=== PATIENT | male | born 2000 | race Two or more races ===

== ENCOUNTER → 2023-05-19 | Emergency (ER) | payer SELFPAY ==
--- NOTE | 2023-05-19 17:51 | ER ---
Nurse's Notes [facility] Name: Joselito Ross Age: 23 yrs Sex: Male : 2000 Arrival Date: 05/19/2023 Time: 14:45 Bed External Waiting Private MD: Diagnosis: Presentation: 05/18 14:51 Chief complaint: EMS states: toned out for seizure, pt was found to be unresponsive on iw scene, pt arrived to ER and jumped off stretcher, refused to be seen by ER staff, walked out of the dept, family was noted to be in lobby, Code [place] was called due to pt having IV in place.[place] [employer] called. Security was able to remove IV prior to pt leaving, pt was seen getting into family's truck. truck noted to be leaving. ED Course: 14:47 Patient arrived in ED. mr 14:53 Kalyan Boston MD is Attending Physician. sana Administered Medications: No medications were administered Outcome: 14:51 Patient left the ED. iw 14:51 Eloped before seeing physician from EMS stretcher iw Signatures: Kalyan Boston MD MD cha Rivera, Mary, Reg Reg Sharon Iglesias RN RN iw Corrections: (The following items were deleted from the chart) 17:51 17:51 Patient left the ED. iw iw
== END ==
LOC: ER 14:45
DX: Z02.9 Encounter for administrative examinations, unspecified (principal)

== ENCOUNTER 2023-08-29 09:47 | Emergency (ER) | payer SELFPAY ==
--- OUTSIDE RECORDS SUMMARY | 2023-08-29 09:49 | XMS REPORT | Continuity of Care Document ---
Author Name Unknown Address [address] [facility] [place] [address] [facility] thconnect Address [address] [facility] [address] [place] [address] Care Team Providers Care Physics Technician Name Role Phone PCP, PATIENT DOES NOT HAVE A Primary Care Physic beatriz Unavailable CHRISTI OLSEN Attending Clinician Unavailable Christi Levin Attending Clinician [phone] Allergies, Adverse Reactions, Alerts Allergy Name Allergy Type Status Severity Reaction(s) Onset Date Inactive Date Treating Clinician Comments Source [facility] Active High Swelling 05-18 00:00: 00 [facility] Allergy Active Swelling 05-18 00:00: 00 [facility] NO KNOWN ALLERGIE S Drug Class Active [facility] Social History Social Habit Start Date Stop Date Quantity Comments Source [facility] 2000 00:00:00 [facility] Smoking Status Start Date Stop Date Source Tobacco smoking consumption unknown [facility] Vital Signs Vital Name Observation Time Observation Value Comments S jumana Systolic blood pressure 2023-05-19 16:02:00 136 mm[Hg[facility] Diastolic blood pressure 2023-05-19 16:02:00 86 mm[Hg] [place] [facility] Heart rate 2023-05-19 16:01:00 74 /min [facility] Body temperature 2023-05-19 16:01:00 36.39 Rosalba [facility] Respiratory rate 2023-05-19 16:01:00 18 /min [facility] Body height 2023-05-19 16:01:00 172.7 cm [facility] Body weight 2023-05-19 16:01:00 74.844 kg [facility] BMI 2023-05-19 16:01:00 25.09 kg/m2 [facility] Oxygen saturation in Arterial blood by Pulse oximetry 2023-05-19 16:01:00 100 /min [place] [facility] Procedures Procedure Date / Time Performed Performing Clinicia n Source EKG-12 LEAD 2023-05-19 16:24:14 Christi Olsen [facility] Encounters Start Date/Time End Date/Time Encounter Type Admission Type Attending Clinicians Care Facility Care Department Encounter ID Source 2023-05-19 11:15:00 2023-05-19 11:24:00 Emergency X CHRISTI OLSEN [facility] ERT [id number] [facility] 2023-05-19 11:15:00 2023-05-19 11:24:00 Emergency Christi Olsen [facility] [id number] [facility] Notes Date/Time Note Provider Source 2023-05-19 11:15:00 [id number]:15:00F ormatting of this note might be different from the original.Patient refused phlebotomy and further work-up though risks and consequences explained by the ED provider, still opted to sign AMA form. CN informed. [id number] department AtkkFD4470-47-02Y16:18:51Emergency department NoteTXT1.2.840.101884.1.13.104.2.7. [id number]|[id number] for patient ofeh71798-1BzovIZNKZWABOZYSgrebpzri C-CDA narrative [id number] [id number] 1VYYILJXXUVPNYSDWVADAIX4914-26-36G1 1:18:511.2.840.598383.1.72.3.15|1.2 .840.299787.1.13.104.2.7.2.727879_2 [id number] Carol Zaragoza RN [facility] 2023-05-19 11:15:00 [id number]:15:00F ormatting of this note might be different from the original.Patient left AMA vitally stable and ambulatory in steady gait accompanied by significant other. [id number] department AonuXT0883-37-97N00:24:18[facility] NoteTXT1.2.840.897163.1.13.104.2.7. 2.785941|[id number] for patient teiv95830-2ClgkGCBKIVMZZQFVermmywlm C-CDA narrative textUT25 Boyd [id number] 7UVXJTBLMLMZLWRSAHJHKNC9974-28-94P3 1:24:181.2.840.288929.1.72.3.15|1.2 .840.626698.1.13.104.2.7.2.727879_2 [id number] [facility] 2023-05-19 10:59:53 [id number]:59:53F ormatting of this note might be different from the original.Patient states "I was at work and was going to get something from locker and I woke up to my employees in front of me, and they said I went face first and hit my head. I woke up five minutes later." 35949-6Qnywuyxxr department Triage qslwUJ3230-65-47C98:00:58[facility] Triage noteTXT1.2.840.909077.1.13.104.2.7. 2.366715|[id number] for patient tkck09400-5Ppthzcyzc department NoteLNNARRATIVEFormatted C-CDA narrative textUT[address] Xu[id number] 1IUJHP[id number] 1:00:581.2.840.043621.1.72.3.15|1.2 .840.185475.1.13.104.2.7.2.727879_2 [id number] [facility]
[2023-08-29] MEDS ORDERED: IBUPROFEN 200 MG TAB PO ONE (10:02)
[2023-08-29] MEDS ORDERED: HYDROCODONE/APAP 7.5/325 MG TAB ONE (10:02)
[2023-08-29] MEDS ORDERED: IBUPROFEN 400 MG TAB ONE (10:03)
--- NOTE | 2023-08-29 10:53 | RAD REPORT ---
EXAM DESCRIPTION: RAD - Clavicle Left - 08/29/2023 10:47 am CLINICAL HISTORY: Shoulder pain FINDINGS: No fracture or dislocation seen
--- NOTE | 2023-08-29 10:56 | RAD REPORT ---
EXAM DESCRIPTION: RAD - Humerus Left - 08/29/2023 10:47 am CLINICAL HISTORY: Left arm pain status post fall FINDINGS: Limited evaluation of portions of mid to distal left humerus. No fracture visualized
--- NOTE | 2023-08-29 10:58 | RAD REPORT ---
EXAM DESCRIPTION: RAD - Forearm Left - 08/29/2023 10:47 am CLINICAL HISTORY: Left forearm pain status post injury FINDINGS: 2 millimeter bony density lies anterior to coronoid process of the ulna. This may be chr onic or an acute fracture and should be correlated clinically
[2023-08-29] MEDS ORDERED: FENTANYL CITR 100 MCG/2 ML ONE (12:14)
--- NOTE | 2023-08-29 12:15 | EDPHYS ---
Physician Documentation [facility] Name: Joselito Ross Age: 23 yrs Sex: Male : 2000 Arrival Date: 08/29/2023 Time: 09:47 Bed 11 Private MD: ED Physician Rasheed Farias HPI: 08/28 09:58 This 23 yrs old Male presents to ER via Unassigned with complaints of Arm Injury. kb 09:58 Pt is a 23 year old male who presents for left arm pain that started at 0500 when he kb tripped going up the stairs and landed on left arm. Denies any other injuries or pain. Reports pain from wrist to shoulder. . Historical: - Allergies: 09:59 No Known Allergies; ph - Home Meds: 12:37 None [Active]; tl4 - PMHx: 09:59 Seizure; Asthma; ph - PSHx: 09:59 None; ph - Immunization history:: Adult Immunizations unknown. - Infectious Disease History:: Denies. - Social history:: Smoking status: Patient reports the use of cigarette tobacco products, Reported history of juuling and/or vaping. ROS: 13:03 Constitutional: As per HPI kb Exam: 13:03 Constitutional: This is a well developed, well nourished patient who is awake, alert, kb and in no acute distress. Head/Face: Normocephalic, atraumatic. ENT: Moist Mucous membranes Cardiovascular: Regular rate Respiratory: Respirations even and unlabored. No increased work of breathing. Talking in full sentences Skin: Warm, dry with normal turgor. Normal color. Neuro: Awake and alert, GCS 15, oriented to person, place, time, and situation. Moves all extremities. Normal gait. 13:03 Musculoskeletal/extremity: Extremities: grossly normal except: noted in the left arm: decreased ROM, pain, swelling, tenderness, ROM: limited active range of motion due to pain, in the left arm, Circulation is intact in all extremities. Sensation intact. Vital Signs: 09:58 Weight 68.04 kg; Height 5 ft. 8 in. ; ph 10:08 BP 141 / 83; Pulse 85; Resp 18; Temp 97.7; Pulse Ox 99% on R/A; ph 13:57 BP 122 / 70; Pulse 70; Resp 16; Temp 98.1(O); Pulse Ox 99% on R/A; tl4 09:58 Body Mass Index 22.81 (68.04 kg, 172.72 cm) ph MDM: 09:56 Patient medically screened. kb 13:03 Differential diagnosis: dislocation, closed fracture, contusion, sprain. Data reviewed: kb vital signs, nurses notes. Counseling: I had a detailed discussion with the patient and/or guardian regarding the historical points, exam findings, and any diagnostic results supporting the discharge/admit diagnosis, radiology results, the need for outpatient follow up, a orthopedic surgeon, to return to the emergency department if symptoms worsen or persist or if there are any questions or concerns that arise at home. 08/28 09:57 Order name: Clavicle Left XRAY; Complete Time: 10:57 kb 08/28 09:57 Order name: Humerus Left XRAY; Complete Time: 10:57 kb 08/28 09:57 Order name: Forearm Left XRAY; Complete Time: 11:02 kb 08/28 09:57 Order name: Ice pack; Complete Time: 12:16 kb 08/28 11:33 Order name: Posterior Elbow Splint; Complete Time: 13:56 kb 08/28 11:33 Order name: Sling; Complete Time: 12:23 kb Administered Medications: 10:08 Drug: Hydrocodone-Acetaminophen PO (7.5 mg-325 mg) 1 tabs PO once Route: PO; ph 12:16 Follow up: Response: No adverse reaction; Pain is decreased tl4 10:08 Drug: Ibuprofen PO 600 mg PO once Route: PO; ph 12:16 Follow up: Response: No adverse reaction; Pain is decreased tl4 12:34 Drug: fentaNYL (PF) IM 25 mcg IM once Route: IM; Site: left deltoid; tl4 13:29 Follow up: Response: No adverse reaction; Pain is decreased tl4 Disposition Summary: 08/29/23 12:14 Discharge Ordered Notes: Location: Home kb Condition: Stable kb Diagnosis - Fracture left elbow kb - Pain in left arm kb Followup: kb - With: Emergency Department - When: As needed - Reason: Worsening of condition Followup: kb - With: Private Physician - When: 2 - 3 days - Reason: Recheck today's complaints, Continuance of care, Re-evaluation by your physician Discharge Instructions: - Discharge Summary Sheet kb - Musculoskeletal Pain kb - Ulnar Fracture kb Forms: - Medication Reconciliation Form kb - Antibiotic Education kb - Prescription Opioid Use kb - Patient Portal Instructions kb - Leadership Thank You Letter kb Prescriptions: - Diclofenac Sodium 75 mg Oral tablet, delayed release (enteric coated) - take 1 tablet ORAL route 2 times per day As needed; 30 tablet; Refills: 0, kb Product Selection Permitted Signatures: Dispatcher [employer] EDArleth Jacobs FNP-C FNP-Heide Freedman RN RN Raulito Brown RN RN tl4 Corrections: (The following items were deleted from the chart) 12:38 12:37 PMHx: "fluid on brain"; tl4 tl4
--- NOTE | 2023-08-29 12:15 | ER ---
Nurse's Notes [facility] Name: Joselito Ross Age: 23 yrs Sex: Male : 2000 Arrival Date: 08/29/2023 Time: 09:47 Bed 11 Private MD: Diagnosis: Fracture left elbow;Pain in left arm Presentation: 08/28 09:58 Chief complaint: Patient states: Tripped going up steps this morning, landed on L arm. ph Coronavirus screen: Vaccine status: Patient reports being unvaccinated. Ebola Screen: No symptoms or risks identified at this time. Initial Sepsis Screen: Does the patient meet any 2 criteria? No. Patient's initial sepsis screen is negative. Does the patient have a suspected source of infection? No. Patient's initial sepsis screen is negative. Risk Assessment: Do you want to hurt yourself or someone else? Patient reports no desire to harm self or others. Onset of symptoms was August 29, 2023. 09:58 Method Of Arrival: Wheelchair 09:58 Acuity: JESSIE 4 ph Triage Assessment: 12:38 General: Appears uncomfortable. Injury Description: blunt, fall onto left upper tl4 extremity. Historical: - Allergies: 09:59 No Known Allergies; ph - Home Meds: 12:37 None [Active]; tl4 - PMHx: 09:59 Seizure; Asthma; ph - PSHx: 09:59 None; ph - Immunization history:: Adult Immunizations unknown. - Infectious Disease History:: Denies. - Social history:: Smoking status: Patient reports the use of cigarette tobacco products, Reported history of juuling and/or vaping. Screenin:35 [facility] ED Fall Risk Assessment (Adult) History of falling in the last 3 months, tl4 including since admission Yes- single mechanical fall (1 pt) Confusion or Disorientation No (0 pts) Intoxicated or Sedated No (0 pts) Impaired Gait No (0 pts) Mobility Assist Device Used No (0 pt) Altered Elimination No (0 pt) Score/Fall Risk Level 0 - 2 = Low Risk Oriented to surroundings, Maintained a safe environment, Educated pt \\T\\ family on fall prevention, incl call for assistance when getting out of bed, Assessed \\T\\ reinforced patient's understanding of fall precautions. Abuse screen: Denies threats or abuse. Denies injuries from another. Nutritional screening: No deficits noted. Tuberculosis screening: No symptoms or risk factors identified. Assessment: 12:08 General: Appears uncomfortable, Behavior is calm, cooperative. Pain: Complains of pain tl4 in left arm. Neuro: Level of Consciousness is awake, alert, obeys commands, Oriented to person, place, time, situation, Moves all extremities. Full function Gait is steady, Speech is normal. Cardiovascular: Capillary refill < 3 seconds Patient's skin is warm and dry. Respiratory: Airway is patent Respiratory effort is even, unlabored, Respiratory pattern is regular, symmetrical, Breath sounds are clear bilaterally. GI: No signs and/or symptoms were reported involving the gastrointestinal system. : No signs and/or symptoms were reported regarding the genitourinary system. EENT: No signs and/or symptoms were reported regarding the EENT system. Derm: No signs and/or symptoms reported regarding the dermatologic system. Musculoskeletal: Circulation, motion, and sensation intact. Swelling present in left arm. 13:56 Reassessment: Patient and/or family updated on plan of care and expected duration. Pain tl4 level reassessed. Patient is alert, oriented x 3, equal unlabored respirations, skin warm/dry/pink. Delay to discharge due to splinting process Patient states feeling better. Vital Signs: 09:58 Weight 68.04 kg; Height 5 ft. 8 in. ; ph 10:08 BP 141 / 83; Pulse 85; Resp 18; Temp 97.7; Pulse Ox 99% on R/A; ph 13:57 BP 122 / 70; Pulse 70; Resp 16; Temp 98.1(O); Pulse Ox 99% on R/A; tl4 09:58 Body Mass Index 22.81 (68.04 kg, 172.72 cm) ph ED Course: 09:49 Patient arrived in ED. im 09:50 Rasheed Farias MD is Attending Physician. ec2 09:56 Arleth Neil [facility]NP-C [facility]. kb 09:59 Triage completed. ph 09:59 Arm band placed on Patient placed in waiting room, Patient notified of wait time. ph 10:49 Clavicle Left XRAY In Process Unspecified. EDMS 10:49 Humerus Left XRAY In Process Unspecified. EDMS 10:49 Forearm Left XRAY In Process Unspecified. EDMS 12:04 Raulito Brown, RN is Primary Nurse. tl4 12:37 Patient has correct armband on for positive identification. Bed in low position. Call tl4 light in reach. Side rails up X 1. Adult w/ patient. Provided Education on: ed process, call bar. Client placed on continuous cardiac and pulse oximetry monitoring. NIBP monitoring applied. Door closed. Noise minimized. Lights dimmed. Moved to private room. Warm blanket given. Pillow given. 12:37 No provider procedures requiring assistance completed. Patient did not have IV access tl4 during this emergency room visit. 13:57 Orthoglass splint: posterior elbow splint applied to left arm by STEWART Ferrara, assisted tl4 by Irais Brown RN Sling applied to left arm. Administered Medications: 10:08 Drug: Hydrocodone-Acetaminophen PO (7.5 mg-325 mg) 1 tabs PO once Route: PO; ph 12:16 Follow up: Response: No adverse reaction; Pain is decreased tl4 10:08 Drug: Ibuprofen PO 600 mg PO once Route: PO; ph 12:16 Follow up: Response: No adverse reaction; Pain is decreased tl4 12:34 Drug: fentaNYL (PF) IM 25 mcg IM once Route: IM; Site: left deltoid; tl4 13:29 Follow up: Response: No adverse reaction; Pain is decreased tl4 Medication: 12:35 VIS not applicable for this client. tl4 Outcome: 12:14 Discharge ordered by . kb 13:59 Discharged to home ambulatory, with family, tl4 13:59 Condition: stable 13:59 Discharge instructions given to patient, Instructed on discharge instructions, follow up and referral plans. medication usage, splint care Demonstrated understanding of instructions, follow-up care, medications, splint care, Prescriptions given X 1, 13:59 Patient left the ED. tl4 Signatures: Dispatcher [employer] EDND Arleth Neil FNP-C FNP-Heide Freedman, RN RN Sarahy Padron Edwin, MD MD ec2 Raulito Brown, [place] RN tl4 Corrections: (The following items were deleted from the chart) 12:38 12:37 PMHx: "fluid on brain"; tl4 tl4
[2023-08-29 14:16] VITALS: BP 122/70; TEMP 98.1; O2SAT 99
== END 2023-08-29 13:59 | disposition home or self-care (01) ==
LOC: ER 09:47
PROC: 2W3BX1Z Immobilization of Left Upper Arm using Splint (ICD-10-PCS; principal; 2023-08-29)
DX: S42.402A Unspecified fracture of lower end of left humerus, initial encounter for closed fracture (principal)
CPT/HCPCS: 96372; 99284; J3010

== ENCOUNTER 2023-10-03 23:31 | Emergency (ER) | payer SELFPAY ==
--- OUTSIDE RECORDS SUMMARY | 2023-10-03 23:34 | XMS REPORT | Continuity of Care Document ---
Author Name Unknown Address [address] [facility] [place] [address] [facility] thconnect Address [address] [facility] [address] [place] [address] Care Team Providers Care Software Systems Architect Name Role Phone Pcp, Patient Does Not Have A Primary Care Physic beatriz Romario De Los Santos MD Attending Clinician [phone] Joaquín Orellana DO Attending Clinician DARIO OLSEN Attending Clinician Unavailable Dario Levin Attending Clinician [phone] Allergies, Adverse Reactions, Alerts Allergy Name Allergy Type Status Severity Reaction(s) Onset Date Inactive Date Treating Clinician Comments Source [facility] Active High Swelling 2023- 3- 00:00: 00 [facility] Avocado Drug Allergy Active Swelling - 00:00: 00 [facility] NO KNOWN ALLERGIE S Drug Class Active [facility] Social History Social Habit Start Date Stop Date Quantity Comments Source Sexual orientation [facility] Sex assigned at 2000 00:00:00 2000 00:00:00 [facility] Smoking Status Start Date Stop Date Source Tobacco smoking consumption unknown [facility] Medications Ordered Medication Name Filled Medication Name Start Date Stop Date Current Medication? Ordering Clinician Indication Dosage Frequency Signature (SIG) Comments Components Source morphine (2 mg/mL) injection 4 mg 09-11 02:30: 00 09-11 02:18 :00 No 4mg 4 mg, Slow IV Push, ONCE, 1 dose, On 09/11/23 at 2130, [facility] NaCl 0.9% (NS) bolus infusion 1,000 mL 09-11 00:30: 00 09-11 01:42 :00 No 1000mL at 999 mL/hr, 1,000 mL, IV Infusion, ONCE, 1 dose, On 09/11/23 at 1930, [facility] HYDROcodone -acetaminop hen (NORCO 5) 5-325 mg tablet 1 tablet 09-11 00:00: 00 09-11 00:33 :00 No 1{tbl} 1 tablet, Oral, ONCE, 1 dose, On 09/11/23 at 1900, [facility] LORazepam (ATIVAN) injection 1 mg 09-10 22:00: 00 09-10 22:00 :00 No 1mg 1 mg, Slow IV Push, ONCE, 1 dose, On 09/11/23 at 1700, [facility] levETIRAcet am (KEPPRA) in NACL (ISO-OS) 500 mg/100 mL RTU 09-10 22:00: 00 09-10 22:10 :00 No 500mg 500 mg, IV Piggyback, ONCE, 1 dose, On 09/11/23 at 1700, Administer over 15 Minutes, 100 mL [facility] NaCl 0.9% (NS) IV infusion 1,000 mL 09-10 22:00: 00 09-10 22:30 :00 No 1000mL at 1,000 mL/hr, IV Infusion, ONCE, 1 dose, On 09/11/23 at 1700, [facility] levETIRAcet am (KEPPRA) in NACL (ISO-OS) 1,500 mg/100 mL RTU 09-10 21:30: 00 09-10 21:47 :00 No 1500mg 1,500 mg, IV Piggyback, ONCE, 1 dose, On 09/11/23 at 1630, Administer over 15 Minutes, 100 mL [facility] ondansetron (ZOFRAN (PF)) injection 4 mg 09-10 21:15: 00 09-10 21:15 :00 No 4mg 4 mg, Slow IV Push, ONCE, 1 dose, On 09/11/23 at 1615, GISELLE [facility] morphine (2 mg/mL) injection 4 mg 09-10 21:15: 00 09-10 21:15 :00 No 4mg 4 mg, Slow IV Push, ONCE, 1 dose, On 09/11/23 at 1615, STAT [facility] levETIRAcet am (KEPPRA) 750 mg tablet 09-10 00:00: 00 10-11 04:59 :00 Yes [id number] 750mg Take 1 tablet by mouth in the morning and 1 tablet in the evening. Do all this for 30 days. [facility] HYDROcodone -acetaminop hen 5-325 mg tablet 09-10 00:00: 00 09-18 04:59 :00 Yes [id number] 1{tbl} Take 1 tablet by mouth every 4 (four) hours as needed for Pain (scale 7-10) for up to 7 days. Indication s: acute pain [facility] Immunizations Ordered Immunization Name Filled Immunization Name Date Status Comments Source TD Pres-Free Unknown Completed [facility] Vital Signs Vital Name Observation Time Observation Value Comments S ource Systolic blood pressure 2023-09-12 01:07:00 137 mm[Hg] [facility] Diastolic blood pressure 2023-09-12 01:07:00 90 mm[Hg] [facility] Heart rate 2023-09-12 01:07:00 64 /min [facility] Respiratory rate 2023-09-12 01:07:00 18 /min [facility] Oxygen saturation in Arterial blood by Pulse oximetry 2023-09-12 01:07:00 100 /min [facility] Body temperature 2023-09-11 23:54:20 37.06 Rosalba [facility] Body height 2023-09-11 20:46:00 167.6 cm [facility] Body weight 2023-09-11 20:46:00 74.844 kg [facility] BMI 2023-09-11 20:46:00 26.63 kg/m2 [facility] Systolic blood pressure 2023-05-19 16:02:00 136 mm[Hg] [facility] Diastolic blood pressure 2023-05-19 16:02:00 86 mm[Hg] [facility] Heart rate 2023-05-19 16:01:00 74 /min [facility] Body temperature 2023-05-19 16:01:00 36.39 Rosalba [facility] Respiratory rate 2023-05-19 16:01:00 18 /min [facility] Body height 2023-05-19 16:01:00 172.7 cm [facility] Body weight 2023-05-19 16:01:00 74.844 kg [facility] BMI 2023-05-19 16:01:00 25.09 kg/m2 [facility] Oxygen saturation in Arterial blood by Pulse oximetry 2023-05-19 16:01:00 100 /min [facility] Procedures Procedure Date / Time Performed Performing Clinician Source EKG-12 LEAD 2023-09-11 23:31:22 Romario De Los Santos [facility] XR ELBOW <3 VW BILATERAL 2023-09-11 23:02:00 Diego Whitlock [facility] XR FOREARM 2 VW LEFT 2023-09-11 23:02:00 Zach Whitlock [facility] XR HUMERUS 2 VW LEFT 2023-09-11 23:02:00 Zach Whitlock [facility] EKG-12 LEAD 2023-09-11 22:31:17 Diego Whitlock [facility] URINALYSIS 2023-09-11 22:30:00 Diego Whitlock [facility] LACTIC ACID WHOLE BLOOD 2023-09-11 22:02:00 Her carmel Whitlock [facility] TROPONIN I 2023-09-11 22:01:00 Diego Whitlock [facility] COMP. METABOLIC PANEL (41146) 2023-09-11 22:01:00 Diego Whitlock [facility] CBC WITH DIFF 2023-09-11 22:01:00 [facility] 2023-09-11 22:01:00 [facility] KEPPRA (LEVETIRACETAM) 2023-09-11 22:01[facility] 2023-09-11 21:49:00 Romario De Los Santos [facility] EKG-12 LEAD 2023-05-19 16:24:14 Dario Olsen [facility] Encounters Start Date/Time End Date/Time Encounter Type Admission Type Attending Clinicians Care Facility Care Department Encounter ID Source 2023-09-11 15:48:00 2023-09-11 21:52:00 Emergency [facility] [id number] [facility] 2023-05-19 11:15:00 2023-05-19 11:24:00 Emergency X DARIO OLSEN [facility] ERT [id number] [facility] 2023-05-19 11:15:00 2023-05-19 11:24:00 Emergency Dario Olsen [facility] [id number] [facility] Results Test Description Test Time Test Comments Results Result Comments Source XR FOREARM 2 VW LEFT 2023-08-24 1 01:11:08 EXAM: XR HUMERUS 2 VW LEFT, XR ELBOW <3 VW BILATERAL, XR FOREARM 2 VW LEFT HISTORY: 23 years-old Male with trauma COMPARISON: None FINDINGS: Radiographs of the bilateral elbows, left humerus and left forearmdemonstrate possible subcentimeter mineralization anterior to the leftradial head, only seen on lateral view of the left forearm. Joint spacesare preserved. Alignment is within normal limits. Moderate sized left elbowjoint effusion. Dorsal left forearm soft tissue swelling. [facility] XR HUMERUS 2 VW LEFT 2023-08-24 1 01:11:08 EXAM: XR HUMERUS 2 VW LEFT, XR ELBOW <3 VW BILATERAL, XR FOREARM 2 VW LEFT HISTORY: 23 years-old Male with trauma COMPARISON: None FINDINGS: Radiographs of the bilateral elbows, left humerus and left forearmdemonstrate possible subcentimeter mineralization anterior to the leftradial head, only seen on lateral view of the left forearm. Joint spacesare preserved. Alignment is within normal limits. Moderate sized left elbowjoint effusion. Dorsal left forearm soft tissue swelling. [facility] XR ELBOW <3 VW BILATERAL 2023-08-24 1 01:11:08 EXAM: XR HUMERUS 2 VW LEFT, XR ELBOW <3 VW BILATERAL, XR FOREARM 2 VW LEFT HISTORY: 23 years-old Male with trauma COMPARISON: None FINDINGS: Radiographs of the bilateral elbows, left humerus and left forearmdemonstrate possible subcentimeter mineralization anterior to the leftradial head, only seen on lateral view of the left forearm. Joint spacesare preserved. Alignment is within normal limits. Moderate sized left elbowjoint effusion. Dorsal left forearm soft tissue swelling. [facility]11 22:00:07* Test Item Value Reference Range Interpretation Comme nts POCT GLU (test code = [id number]) 107 mg/dL 70-110 Lab Interpretation (test cod e = [id number]) Normal [facility] Notes Date/Time Note Provider Source 2023-09-11 21:52:00 Pt leaves AMA, provided prescriptions by MD Damon Darrin Torres RN [facility] 2023-09-11 20:42:32 Pt wishing to leave AMA per MD Damon she must splint pt arm first, pt verbalizes understanding T [facility] 2023-09-11 20:01:45 Neuro at bedside T [facility] 2023-09-11 19:13:12 Introduced self to pt, pt in stretcher side rails upx2 bed in lowest position, seizure safety equipment at bedside. [facility] 2023-09-11 19:08:11 Spoke with EMS and confirmed that they did not find his phone on the truck. [facility] 2023-09-11 18:31:22 Associated Order(s): EKG-12 Lead ROUTINE ONCE Pre-Procedure Diagnose(s): Seizure Post-Procedure Diagnose(s): Seizure EKG-12 Lead ROUTINE ONCE Date/Time: 09/11/2023 6:30 PM Performed by: Romario De Los Santos MD Authorized by: Romario De Los Santos MD ECG interpreted by ED Physician in the absence of a php mysql developer: yes Previous ECG: Previous ECG: Compared to current Similarity: No change Comparison ECG info: 05/15/23 Interpretation: Interpretation: normal Rate: ECG rate: 68 ECG rate assessment: normal Rhythm: Rhythm: sinus rhythm Ectopy: Ectopy: none QRS: QRS axis: Normal QRS intervals: Normal QRS conduction: normal ST segments: ST segments: Normal T waves: T waves: normal Q waves: Abnormal Q-waves: not present [facility] 2023-09-11 16:00:00 Radha Ross is a 23 year old male that arrived to [facility] ER via EMS from From [facility] with complaints of gran mal seizure with resulting fall/injuries. Patient arrives postictal and slightly confused. He is reporting 10/10 pain in both elbows and his head where he has a small lac. is at is at the bedside and witnessed the seizure. Patient has been placed on all monitors and is slightly hypertensive. [facility] 2023-09-11 15:45:20 Radha Ross is a 23 year old male brought in by EMS from [facility] with complaint of witnessed seizure. Fall from standing during seizure, laceration to posterior head, no active bleeding. Patient is alert and oriented x 4, respirations even and unlabored, skin color appropriate to race. Pt reports non-complaince with Keppra. Treatment prior to arrival: Zofran 4mg Patient to room for evaluation. Ramila Hunter RN [facility] 2023-09-11 15:44:00 Associated Order(s): EKG-12 Lead ROUTINE ONCE Pre-Procedure Diagnose(s): Seizure Post-Procedure Diagnose(s): Seizure Images from the original note were not included. [facility] Emergency Department Note Patient Name: Radha Ross Date of : 2000 23 year old male Treatment Room: [address] [place] [address] Primary Care Physician: PATIENT DOES NOT HAVE A PCP Patient Escorted by: Self [9] Mode of Arrival: EMS - GEMS [30] EMS Treatment Prior to ED Arrival: Travel and Exposure Screening: Symptoms Does patient have any of these symptoms?: (not recorded) Exposure Screening Has patient had contact with someone with a communicable disease in the last month?: (not recorded) Diseases exposed to:: (not recorded) Is Patient ?: (not recorded) Exposure Date: (not recorded) Chief Complaint: Chief Complaint Patient presents with Seizures History of Present Illness: Mr. Ross is a 23-year-old male with past medical history of seizures who presented to ED via EMS after an epileptic episode. The patient's is at bedside and says [place] [place] when the patient suddenly went up and collapsed to the ground. The patient's reports he collapsed to the left side sustaining left upper extremity injuries and head contusion. The patient endorses shortness of breath, nausea, headache left upper extremity pain. He denies chest pain, abdominal pain and vomiting. History provided by: Patient and spouse Past Medical History/Immunizations: History reviewed. No pertinent past medical history. Allergies: Allergies Allergen Reactions Avocado Swelling Past Social History: Substance & Sexual Activity No substance use or sexual activity history on file. Past Surgical History: History reviewed. No pertinent surgical history. Review of Systems: Review of Systems Constitutional: Negative for chills, fatigue and fever. HENT: Negative for congestion and rhinorrhea. Respiratory: Positive for wheezing. Negative for chest tightness and shortness of breath. Cardiovascular: Negative for chest pain and palpitations. Gastrointestinal: Negative for abdominal pain, diarrhea, nausea and vomiting. Genitourinary: Negative for dysuria, hematuria and difficulty urinating. Musculoskeletal: Negative for arthralgias. Neurological: Positive for dizziness, seizures, syncope, weakness, light-headedness and headaches. Physical Exam: ED Triage Vitals [09/11/23 1546] Weight 74.8 kg (165 lb) Actual or estimated Height 1.676 m (5' 6") BP 123/75 Pulse 96 Resp 16 Temp 37.1 ?C (98.7 ?F) Temp src SpO2 98 % Measured on Room air Physical Exam Constitutional: Appearance: Normal appearance. HENT: Head: Contusion and mass present. Comments: Head contusion noted on physical exam Mouth/Throat: Mouth: Mucous membranes are moist. Cardiovascular: Rate and Rhythm: Normal rate and regular rhythm. Pulses: Normal pulses. Heart sounds: Normal heart sounds. Pulmonary: Effort: Pulmonary effort is normal. Breath sounds: Normal breath sounds. Abdominal: Tenderness: There is no abdominal tenderness. Musculoskeletal: Arms: Comments: TTP palpation of left arm and elbow Skin: General: Skin is warm. Neurological: Mental Status: He is alert and oriented to person, place, and time. Radiology: No orders to display Lab Results: Lab Results CBC WITH DIFF - Abnormal Result Value Ref Range WBC 12.91 (*) 4.20 - 10.70 10*3/?L RBC 4.42 4.26 - 5.52 10*6/?L HGB 12.5 12.2 - 16.4 g/dL HCT 37.1 (*) 38.4 - 49.3 % MCV 83.9 81.7 - 95.6 fL MCH 28.3 26.1 - 32.7 pg MCHC 33.7 31.2 - 35.0 g/dL RDW-SD 43.1 38.5 - 51.6 fL RDW-CV 13.9 12.1 - 15.4 % PLT 407 (*) 150 - 328 10*3/?L MPV 8.8 (*) 9.8 - 13.0 fL NRBC/100 WBC 0.0 0.0 - 10.0 /100 WBCs NRBC x10 3 <0.01 10*3/?L GRAN MAT (NEUT) % 75.9 % IMM GRAN % 0.40 % LYMPH % 17.7 % MONO % 5.3 % EOS % 0.5 % BASO % 0.2 % GRAN MAT x10 3 (ANC) 9.80 (*) 1.99 - 6.95 10*3/uL IMM GRAN x10 3 0.05 0.00 - 0.06 10*3/uL LYMPH x10 3 2.28 1.09 - 3.23 10*3/uL MONO x10 3 0.69 0.36 - 1.02 10*3/uL EOS x10 3 0.07 0.06 - 0.53 10*3/uL BASO x10 3 <0.03 0.01 - 0.09 10*3/uL PROTHROMBIN TIME / INR - Abnormal PROTIME PATIENT 13.3 (*) 10.1 - 12.6 Seconds INR 1.2 LACTIC ACID WHOLE BLOOD - Abnormal LACTIC ACID 4.21 (*) 0.50 - 2.20 mmol/L POCT GLUCOSE (AUTOMATED) - Normal POCT GLU 107 70 - 110 mg/dL URINALYSIS COMP. METABOLIC PANEL (77131) TROPONIN I KEPPRA (LEVETIRACETAM) EKG: If EKG completed, see Procedure Note. Orders and Treatments: Orders Placed This Encounter Procedures CT HEAD WO CONTRAST XR FOREARM 2 VW LEFT XR HUMERUS 2 VW LEFT XR ELBOW <3 VW BILATERAL CBC WITH DIFF PROTHROMBIN TIME / INR URINALYSIS COMP. METABOLIC PANEL (37594) TROPONIN I Lactic Acid Whole Blood Lactic Acid Whole Blood Keppra (Levetiracetam) POCT GLUCOSE (AUTOMATED) Orders Placed This Encounter Medications morphine (2 mg/mL) injection 4 mg ondansetron (ZOFRAN (PF)) injection 4 mg NaCl 0.9% (NS) IV infusion 1,000 mL DISCONTD: levETIRAcetam (KEPPRA) in NACL (ISO-OS) 500 mg/100 mL RTU ipratropium-albuteroL (DUONEB) 0.5 mg-3 mg(2.5 mg base)/3 mL nebulizer solution 3 mL DISCONTD: levETIRAcetam (KEPPRA) in NACL (ISO-OS) 1,000 mg/100 mL RTU tetanus-diphtheria toxoids (TENIVAC) 5-2 Lf unit/0.5 mL injection 0.5 mL levETIRAcetam (KEPPRA) in NACL (ISO-OS) 1,500 mg/100 mL RTU LORazepam (ATIVAN) injection 1 mg First Provider Eval: ED Events Date/Time Event User Comments 09/11/23 1556 Medical Screening Begins DIEGO WHITLOCK MD -- 09/11/23 155 First Provider Evaluation DIEGO WHITLOCK MD -- ED COURSE ED Course as of 09/11/23 2146 Sat Sep 11, [id number] Change of shift, patient endorsed to Dr Lizama pending CT scan, repeat labs and reassessment. [CD] 1848 Patient is requesting something for the arm pain. Telferner ordered. I explained all the current results to the patient, spouse and mother and the reason I ordered the CT scan. [CD] 1848 IMPRESSION Soft tissue swelling at the vertex without underlying calvarial fractures. No acute intracranial abnormality. [CD] 1847 KEPPRA: 30 This was drawn after we loaded the patient with Keppra. [CD] 1833 Xrays negative for fracture but given hx of positive fracture 4 days ago and amount of swelling and pain to the left elbow, will get ct scan to assess for non displaced fractures [CD] 1833 Radiographs of the bilateral elbows, left humerus and left forearm demonstrate no acute fractures or dislocations. Joint spaces are preserved. ... Impression No acute bony abnormality. Preliminary Report Dictated by Resident: Brie Causey [CD] 183 WBC x10 3 (!): 12.91 Assessing for infection, likely reactive secondary to seizure [CD] 2 TROPONIN I: 0.015 [CD] 1832 CO2 TOTAL(!): 18 Likely low secondary to seizure activity [CD] 183 LACTIC ACID WHOLE BLOOD(!): 4.21 IVF NS given, will trend, no signs of infection [CD] 183 KETONES(!): 20 mg/dL IVF NS given for dehydration [CD] 183 URINALYSIS(!) No UTI [CD] 1730 Took over full care of this patient for Dr Whitlock finished her shift. [CD] 1701 POCT GLU: 107 [CD] 1653 3 minutes after receiving ativan, patient reports he feels better. Patient can now speak full and complete sentences now. [HS] 1650 Patient reporting blurry vision, jittery and confusion. Ordered ativan. Blood glucose was 107 during finger stick. Pt reports these symptoms are prodromal. [HS] 1626 23-year-old male with history of seizures, noncompliant with his Keppra, comes in after witnessed seizure by his significant other [place] [facility] [place]. Spouse states patient was walking and then became very stiff and unresponsive and fell to the ground striking his head, patient had full tonic-clonic movements for less than a minute and then appears to have had a postictal phase, patient is complaining of increased pain in his left arm which he had said was dx with a fracture 4 days ago in [place], states he took the splint off because it was too tight, also complaining of pain now to the right elbow from the fall and a mild H/A. unsure of his last tetanus. Patient admits to THC use, denies any other medical problems other than the seizure history. States he was otherwise in his normal state of health prior to the event. Patient is back to normal mental status at this time. On exam patient is well-appearing but appears slightly fatigued, alert and interactive, PERRLA EOMI CN II to XII intact patient with 3 x 2 cm abrasion/hematoma to the crown of the head no active bleeding no open wound no indication for sutures no bony depressions or step-off, no midline cervical dorsal lumbar spine tenderness to palpation, no rib tenderness to palpation no abdominal tenderness to palpation, bilateral lower extremities without pain on full range of motion in all joints neurovasc intact distally. Right upper extremity with mild tenderness to the elbow but full range of motion and neurovascular intact distally. 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 Differential is seizure, medication noncompliance, contusion versus fracture, head injury Plan is CT labs, xrays, hydration. [CD] ED Course User Index [CD] Romario De Los Santos MD [HS] Diego Whitlock MD Diagnosis/Impression as of 09/11/232145 Seizure Dehydration Pain in both upper extremities Closed nondisplaced fracture of coronoid process of left ulna, initial encounter Procedures: EKG-12 Lead ROUTINE ONCE Date/Time: 09/11/2023 5:28 PM Performed by: Diego Whitlock MD Authorized by: Jeanette Rubio MD Previous ECG: Previous ECG: Unavailable Interpretation: Interpretation: normal Rate: ECG rate: 68 ECG rate assessment: normal Rhythm: Rhythm: sinus rhythm Ectopy: Ectopy: none QRS: QRS axis: Normal QRS intervals: Normal QRS conduction: normal ST segments: ST segments: Normal T waves: T waves: normal MDM: Medical Decision Making Mr. Ross is a 23-year-old male with past medical history of seizures who presented to ED via EMS after an epileptic episode. The patient's is at bedside and [place] [facility] [place] the patient suddenly went up and collapsed to the ground. The patient's reports he collapsed to the left side sustaining left upper extremity injuries and head contusion. Workup includes CBC, CMP, EKG, troponin, morphine, Keppra, a bolus of IV fluid, tetanus vaccine, CT head, and x-ray of the left upper extremity. Differentials include but not limited to seizure, CVA, meningitis and toxin ingestion. At the time of signout, the patient's labs and images were pending. If CT head reveals any abnormalities, will recommend the patient to be admitted inpatient. Everything returned within normal limits, will discharge patient and advised the patient to follow-up with neurology in an outpatient setting. Amount and/or Complexity of Data Reviewed Labs: ordered. Decision-making details documented in ED Course. Details: Labs (last 24 hours): Chemistry CBC LFTs Coags, other - - - - 12.91 (H) 12.5 407 (H) AST: - ALT: - PT: 13.3 (H) INR: 1.2 - - - 37.1 (L) AP: - T Cecil: - PTT: - eGFR: - Ca: - % Elliott: 75.9 Prot: - Alb: - Lact: 4.21 (H) Procal: - Mg: - PO4: - ANC: 9.80 (H) pBNP: - Trop I: - Radiology: ordered. Details: No final results containing an impression from the past 48 hours were found. Risk Prescription drug management. Parenteral controlled substances. Flowsheet Documentation: Scoring Tools: No data recorded Disposition/Condition: ED Disposition None Discharge Medications: Patient's Medications No medications on file Follow-up: Electronically signed by: Diego Whitlock MD 09/11/23 1731 Associated attestation - Romario De Los Santos MD - 09/11/2023 6:11 PM CDT Addendum I personally examined and participated in decision-making for this patient with the resident, Dr Whitlock Please see the resident note for further details. Lab and imaging studies reviewed Findings discussed with patient Diagnosis 1. Seizure acute Plan 1. I took over full care of this patient for Dr Whitlocks shift was over, see my note for further ER care, MDM and ER course. Note reviewed Dr. Romario De Los Santos MD, [facility] 2023-09-11 15:44:00 1700 23-year-old male with history of seizures, noncompliant with his Keppra, comes in after witnessed seizure by his significant other outside of [place] [facility]. Spouse states patient was walking and then became very stiff and unresponsive and fell to the ground striking his head, patient had full tonic-clonic movements for less than a minute and then appears to have had a postictal phase, patient is complaining of increased pain in his left arm which he had said was dx with a fracture 4 days ago in [place], states he took the splint off because it was too tight, also complaining of pain now to the right elbow from the fall and a mild H/A. unsure of his last tetanus. Patient admits to THC use, denies any other medical problems other than the seizure history. States he was otherwise in his normal state of health prior to the event. Patient is back to normal mental status at this time. On exam patient is well-appearing but appears slightly fatigued, alert and interactive, PERRLA EOMI CN II to XII intact patient with 3 x 2 cm abrasion/hematoma to the crown of the head no active bleeding no open wound no indication for sutures no bony depressions or step-off, no midline cervical dorsal lumbar spine tenderness to palpation, no rib tenderness to palpation no abdominal tenderness to palpation, bilateral lower extremities without pain on full range of motion in all joints neurovasc intact distally. Right upper extremity with mild tenderness to the elbow but full range of motion and neurovascular intact distally. 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 Differential is seizure, medication noncompliance, contusion versus fracture, head injury Plan is CT labs, xrays, hydration. See ed course for further ER evaluation and MDM. Medical Decision Making See ED course for MDM Problems Addressed: Dehydration: acute illness or injury Pain in both upper extremities: acute illness or injury Seizure: acute illness or injury Amount and/or Complexity of Data Reviewed Labs: ordered. Decision-making details documented in ED Course. Radiology: ordered. Decision-making details documented in ED Course. ECG/medicine tests: ordered and independent interpretation performed. Decision-making details documented in ED Course. Details: See procedure note Risk Prescription drug management. Parenteral controlled substances. 1854 endorsed to night team pending further ED workup. Note reviewed Dr. Romario De Los Santos MD, FACEP Romario De Los Santos MD 09/11/[id number] T [facility] 2023-05-19 11:15:00 Patient refused phlebotomy and further work-up though risks and consequences explained by the ED provider, still opted to sign AMA form. CN informed. T Carol Zaragoza RN [facility] 2023-05-19 11:15:00 Patient left AMA vitally stable and ambulatory in steady gait accompanied by significant other. T [facility] 2023-05-19 10:59:53 Patient states "I was at work and was going to get something from locker and I woke up to my employees in front of me, and they said I went face first and hit my head. I woke up five minutes later." [facility]
[2023-10-03] MEDS ORDERED: LEVETIRACETAM 500 MG/5 ML VIAL IV ONE (23:46)
[2023-10-03] MEDS ORDERED: NA CHLORIDE 0.9% 0 ML ONE (23:47)
[2023-10-03] MEDS ORDERED: levETIRAcetam 500 MG TAB ONE ×2 (23:51→23:53)
--- NOTE | 2023-10-03 23:52 | ER ---
Nurse's Notes [facility] Name: Joselito Ross Age: 23 yrs Sex: Male : 2000 Arrival Date: 10/03/2023 Time: 23:31 Bed 2 Private MD: Diagnosis: Other seizures Presentation: 10/02 23:39 Chief complaint: EMS states: pt was without medication for seizures for two days due to bm8 travel. pt forgot medications. pt had seizure witnessed lasted approx 5 mins. Coronavirus screen: At this time, the client does not indicate any symptoms associated with coronavirus-19. Ebola Screen: Patient negative for fever greater than or equal to 101.5 degrees Fahrenheit, and additional compatible Ebola Virus Disease symptoms Patient denies exposure to infectious person. Patient denies travel to an Ebola-affected area in the 21 days before illness onset. No symptoms or risks identified at this time. Initial Sepsis Screen: Does the patient meet any 2 criteria? No. Patient's initial sepsis screen is negative. Does the patient have a suspected source of infection? No. Patient's initial sepsis screen is negative. Risk Assessment: Do you want to hurt yourself or someone else? Patient reports no desire to harm self or others. Onset of symptoms is unknown. Care prior to arrival: Medication(s) given: Phenergan, 12.5 mg, zofran 4 mg, IV initiated. 18 GA, in the left antecubital area. 23:39 Method Of Arrival: EMS: [place] [address] 23:39 Acuity: JESSIE 3 bm8 Triage Assessment: 23:41 General: Appears distressed, uncomfortable, Behavior is cooperative, appropriate for bm8 age, anxious. Pain: Complains of pain in head Pain currently is 5 out of 10 on a pain scale. Quality of pain is described as aching. EENT: No deficits noted. No signs and/or symptoms were reported regarding the EENT system. Neuro: No deficits noted. Level of Consciousness is awake, alert, obeys commands, Oriented to person, place, time, situation, Appropriate for age Hand Cutter are equal bilaterally Moves all extremities. Full function Speech is normal, Facial symmetry appears normal, Pupils are PERRLA, Pupil Size: 4mm Intact Reports headache. Cardiovascular: Capillary refill < 3 seconds Patient's skin is warm and dry. Respiratory: Airway is patent Respiratory effort is even, unlabored, Respiratory pattern is regular, symmetrical. GI: Abdomen is flat, non-distended, Reports nausea, vomiting. : No signs and/or symptoms were reported regarding the genitourinary system. Derm: No signs and/or symptoms reported regarding the dermatologic system. Musculoskeletal: No signs and/or symptoms reported regarding the musculoskeletal system. Historical: - Allergies: 23:41 avacadoes; bm8 - Home Meds: 23:41 Keppra Oral [Active]; bm8 - PMHx: 23:41 Asthma; Seizure; bm8 - PSHx: 23:41 None; bm8 - Immunization history:: Adult Immunizations up to date. - Infectious Disease History:: Denies. - Social history:: Smoking status: Patient denies any tobacco usage or history of. Patient uses alcohol, occasionally. street drugs, marijuana. Screenin:56 [facility] ED Fall Risk Assessment (Adult) History of falling in the last 3 months, bm8 including since admission No falls in past 3 months (0 pts) Confusion or Disorientation No (0 pts) Intoxicated or Sedated No (0 pts) Impaired Gait No (0 pts) Mobility Assist Device Used No (0 pt) Altered Elimination No (0 pt) Score/Fall Risk Level 0 - 2 = Low Risk Oriented to surroundings, Maintained a safe environment, Educated pt \T\ family on fall prevention, incl call for assistance when getting out of bed, Assessed \T\ reinforced patient's understanding of fall precautions, Hourly rounding (assess needs \T\ fall precautionary measures) done, Used ambulatory aids as needed (educated on \T\ assisted with), Used gait belt as appropriate. Abuse screen: Denies threats or abuse. Nutritional screening: No deficits noted. Tuberculosis screening: No symptoms or risk factors identified. Assessment: 23:56 Reassessment: pt stated that he would prefer oral medication and after that he wanted [facility] to leave. informed of pt's wishes. Oral medication given to pt and he was discharged with family present Patient states feeling better. Patient states symptoms have improved. Vital Signs: 23:39 BP 139 / 98; Pulse 80; Resp 17; Temp 97.6; Pulse Ox 100% ; Weight 68.04 kg; Height 5 bm8 ft. 7 in. ; Pain 5/10; 23:39 Body Mass Index 23.49 (68.04 kg, 170.18 cm) bm8 23:39 Pain Scale: Adult bm8 Brett Coma Score: 23:41 Eye Response: spontaneous(4). Motor Response: obeys commands(6). Verbal Response: bm8 oriented(5). Total: 15. 23:56 Eye Response: spontaneous(4). Motor Response: obeys commands(6). Verbal Response: bm8 oriented(5). Total: 15. ED Course: 23:39 Patient arrived in ED. bm8 23:41 Loco Grijalva DO is Attending Physician. ms3 23:41 Triage completed. bm8 23:41 Arm band placed on Patient placed in an exam room. bm8 23:41 Seizure precautions initiated. bm8 23:41 No provider procedures requiring assistance completed. Maintain EMS IV. Dressing bm8 intact. Good blood return noted. Site clean \T\ dry. Gauge \T\ site: 18 g lac. Flushed with 10 mL NS. 23:51 Nikko Ramirez MD is Referral Physician. ms3 23:56 Patient has correct armband on for positive identification. Bed in low position. Client bm8 placed on continuous cardiac and pulse oximetry monitoring. NIBP monitoring applied. Pulse ox on. NIBP on. Door closed. Noise minimized. Head of bed elevated. 23:58 IV discontinued, intact, bleeding controlled, No redness/swelling at site. Pressure bm8 dressing applied. 23:59 Adult w/ patient. Provided Education on: post er care. bm8 Administered Medications: 23:45 Drug: Keppra PO 1000 mg PO once Route: PO; bm8 23:59 Follow up: Response: No adverse reaction bm8 23:51 CANCELLED (Physician Discretion): [id number] mg/kg IV at calculated rate once; not to ms3 exceed 2,500 milligrams administer over 15 minutes Medication: 23:56 VIS not applicable for this client. bm8 Outcome: 23:52 Discharge ordered by . ms3 23:58 Discharged to home ambulatory, with family, bm8 23:58 Condition: stable 23:58 Discharge instructions given to patient, family, Instructed on discharge instructions, follow up and referral plans. no drinking with medication, no driving heavy equipment, medication usage, safety practices, Demonstrated understanding of instructions, follow-up care, medications, 0812 00:00 Patient left the ED. bm8 Signatures: Loco Grijalva, DO ms3 Puma Lindsey, RN RN bm8
--- NOTE | 2023-10-03 23:52 | EDPHYS ---
Physician Documentation [facility] Name: Joselito Ross Age: 23 yrs Sex: Male : 2000 Arrival Date: 10/03/2023 Time: 23:31 Bed 2 Private MD: ED Physician Loco Grijalva HPI: 10/02 23:45 This 23 yrs old Male presents to ER via EMS with complaints of Seizure. ms3 23:45 23-year-old male with past medical history of seizures presents to the emergency ms3 department via [facility] status post seizure that lasted approximately 5 minutes. EMS notes patient to have nausea and vomiting and route. Patient was given 4 mg Zofran and 12.5 mg Phenergan IV. . Historical: - Allergies: 23:41 avacadoes; bm8 - Home Meds: 23:41 Keppra Oral [Active]; bm8 - PMHx: 23:41 Asthma; Seizure; bm8 - PSHx: 23:41 None; bm8 - Immunization history:: Adult Immunizations up to date. - Infectious Disease History:: Denies. - Social history:: Smoking status: Patient denies any tobacco usage or history of. Patient uses alcohol, occasionally. street drugs, marijuana. ROS: 23:54 Constitutional: Negative for fever, and chills. Neck: Negative for injury, pain, and ms3 swelling, Cardiovascular: Negative for chest pain, and palpitations. Respiratory: Negative for shortness of breath, cough, wheezing, and pleuritic chest pain, Abdomen/GI: Negative for abdominal pain, nausea, vomiting, diarrhea, and constipation, MS/Extremity: Negative for injury and deformity, Skin: Negative for injury, rash, and discoloration, 23:54 Neuro: Positive for seizure activity, Exam: 23:54 Constitutional: This is a well developed, well nourished patient who is awake, alert, ms3 and in no acute distress. Head/Face: Normocephalic, atraumatic. Neck: Trachea midline, no cervical lymphadenopathy. Supple, full range of motion without nuchal rigidity, or vertebral point tenderness. No Meningismus. Chest/axilla: Normal chest wall appearance and motion. Nontender with no deformity. Cardiovascular: Regular rate and rhythm with a normal S1 and S2. No gallops, murmurs, or rubs. Normal PMI, no JVD. No pulse deficits. Respiratory: Lungs have equal breath sounds bilaterally, clear to auscultation and percussion. No rales, rhonchi or wheezes noted. No increased work of breathing, no retractions or nasal flaring. Abdomen/GI: Soft, non-tender, with normal bowel sounds. No distension or tympany. No guarding or rebound. No evidence of tenderness throughout. Skin: Warm, dry with normal turgor. Normal color with no rashes, no lesions, and no evidence of cellulitis. MS/ Extremity: Pulses equal, no cyanosis. Neurovascular intact. Full, normal range of motion. Neuro: Awake and alert, GCS 15, oriented to person, place, time, and situation. Cranial nerves II-XII grossly intact. Motor strength 5/5 in all extremities. Sensory grossly intact. Cerebellar exam normal. Normal gait. Psych: Awake, alert, with orientation to person, place and time. Behavior, mood, and affect are within normal limits. Vital Signs: 23:39 BP 139 / 98; Pulse 80; Resp 17; Temp 97.6; Pulse Ox 100% ; Weight 68.04 kg; Height 5 bm8 ft. 7 in. ; Pain 5/10; 23:39 Body Mass Index 23.49 (68.04 kg, 170.18 cm) bm8 23:39 Pain Scale: Adult bm8 Brett Coma Score: 23:41 Eye Response: spontaneous(4). Motor Response: obeys commands(6). Verbal Response: bm8 oriented(5). Total: 15. 23:56 Eye Response: spontaneous(4). Motor Response: obeys commands(6). Verbal Response: bm8 oriented(5). Total: 15. MDM: 23:41 Patient medically screened. ms3 23:54 Differential diagnosis: seizure, Medication Non-Compliance. Data reviewed: vital signs, ms3 nurses notes, and as a result, I will discharge patient. I considered the following discharge prescriptions or medication management in the emergency department Medications were administered in the Emergency Department. See MAR. Historians other than the Patient: EMS: [facility]. Care significantly affected by the following chronic conditions: Seizures. Counseling: I had a detailed discussion with the patient and/or guardian regarding the historical points, exam findings, and any diagnostic results supporting the discharge/admit diagnosis, the need for outpatient follow up, to return to the emergency department if symptoms worsen or persist or if there are any questions or concerns that arise at home. Special discussion: I discussed with the patient/guardian in detail that at this point there is no indication for admission to the hospital. It is understood, however, that if the symptoms persist or worsen the patient needs to return immediately for re-evaluation. ED course: Patient stating he would like to be discharged at this time. Patient refusing IV Keppra. Patient accepted 1 g p.o. discussed with patient necessity to continue medication compliance. Discussed patient about appropriate loading he could have another seizure resulting in disability or . Patient understands and accepts risk. All questions were answered. Discussed with patient he may return at any time to continue his care. Discussed Keppra prescription with patient and he states he has his medication with him; however, he did not take it over the weekend as he was in [place] and forgot his medicine. Administered Medications: 23:45 Drug: Keppra PO 1000 mg PO once Route: PO; bm8 23:59 Follow up: Response: No adverse reaction bm8 23:51 CANCELLED (Physician Discretion): mg/kg IV at calculated rate once; not to ms3 exceed 2,500 milligrams administer over 15 minutes Disposition Summary: 10/03/23 23:52 Discharge Ordered Notes: Location: Home ms3 Condition: Stable ms3 Diagnosis - Other seizures ms3 Followup: ms3 - With: Nikko Ramirez MD - When: 2 - 3 days - Reason: Recheck today's complaints Discharge Instructions: - Discharge Summary Sheet ms3 - Seizure, Adult ms3 Forms: - Medication Reconciliation Form ms3 - Antibiotic Education ms3 - Prescription Opioid Use ms3 - Patient Portal Instructions ms3 - Leadership Thank You Letter ms3 Signatures: Dispatcher [employer] EDMS Loco Grijalva DO DO ms3 Puma Lindsey RN RN bm8 Corrections: (The following items were deleted from the chart) 23:51 23:43 Keppra IV 20 mg/kg IV at calculated rate once; not to exceed 2,500 milligrams ms3 administer over 15 minutes ordered. ms3
[2023-10-04 00:15] VITALS: BP 139/98; TEMP 97.6; O2SAT 100
== END 2023-10-04 | disposition home or self-care (01) ==
LOC: ER 23:31
DX: G40.89 Other seizures (principal)
CPT/HCPCS: 99284; J1953

== ENCOUNTER 2024-06-15 15:00 | Emergency (ER) | payer SELFPAY ==
--- OUTSIDE RECORDS SUMMARY | 2024-06-15 15:03 | XMS REPORT | Continuity of Care Document ---
Author Name Unknown Address [address] [facility] [address] [place] [address] Organization [facility] [place] Address [address] [facility] [address] [place] [address] Care Team Providers Care Billing Clinician Name Role Phone Pcp, Patient Does Not Have A Primary Care Physic beatriz Marc Mathew MD Attending Clinician [phone] Romario De Los Santos MD Attending Clinician [phone] Joaquín Orellana DO Attending Clinician DARIO OLSEN Attending Clinician Unavailable Dario Levin Attending Clinician [phone] Payers Payer Name Policy Type Policy Number Effective Date Expirati on Date Source Allergies, Adverse Reactions, Alerts Allergy Name Allergy Type Status Severity Reaction(s) Onset Date Inactive Date Treating Clinician Comments Source AVOCADO DRUG INGREDI Active High Swelling 05-18 00:00: 00 [facility] Avocado Drug Allergy Active Swelling 05-18 00:00: 00 [facility] NO KNOWN ALLERGIE S Drug Class Active [facility] Social History Social Habit Start Date Stop Date Quantity Comments Source Sexual orientation U [facility] Sex assigned at 2000 00:00:00 2000 00:00:00 [facility] Smoking Status Start Date Stop Date Source Tobacco smoking consumption unknown [facility] Medications Ordered Medication Name Filled Medication Name Start Date Stop Date Current Medication? Ordering Clinician Indication Dosage Frequency Signature (SIG) Comments Components Source levETIRAcet am (KEPPRA) in NACL (ISO-OS) 1,000 mg/100 mL RTU 11-13 23:00: 00 11-13 23:56 :00 No 1000mg 1,000 mg, IV Piggyback, ONCE, 1 dose, On 11/14/23 at 1800, Administer over 15 Minutes, 100 mL [facility] ondansetron (ZOFRAN (PF)) injection 4 mg 11-13 23:00: 00 11-13 22:49 :00 No 4mg 4 mg, Slow IV Push, ONCE, 1 dose, On 11/14/23 at 1800, [facility] morphine (2 mg/mL) injection 4 mg 09-11 02:30: 00 09-11 02:18 :00 No 4mg 4 mg, Slow IV Push, ONCE, 1 dose, On 09/11/23 at 2130, STAT [facility] NaCl 0.9% (NS) bolus infusion 1,000 mL 09-11 00:30: 00 09-11 01:42 :00 No 1000mL at 999 mL/hr, 1,000 mL, IV Infusion, ONCE, 1 dose, On 09/11/23 at 1930, [facility] HYDROcodone -acetaminop hen (NORCO 5) 5-325 mg tablet 1 tablet 09-11 00:00: 00 09-11 00:33 :00 No 1{tbl} 1 tablet, Oral, ONCE, 1 dose, On 09/11/23 at 1900, [facility] LORazepam (ATIVAN) injection 1 mg 09-10 22:00: 00 09-10 22:00 :00 No 1mg 1 mg, Slow IV Push, ONCE, 1 dose, On 09/11/23 at 1700, STAT [facility] levETIRAcet am (KEPPRA) in NACL (ISO-OS) 500 mg/100 mL RTU 09-10 22:00: 00 09-10 22:10 :00 No 500mg 500 mg, IV Piggyback, ONCE, 1 dose, On 09/11/23 at 1700, Administer over 15 Minutes, 100 mL [facility] NaCl 0.9% (NS) IV infusion 1,000 mL 09-10 22:00: 00 09-10 22:30 :00 No 1000mL at 1,000 mL/hr, IV Infusion, ONCE, 1 dose, On 09/11/23 at 1700, GISELLE [facility] levETIRAcet am (KEPPRA) in NACL (ISO-OS) 1,500 mg/100 mL RTU 09-10 21:30: 00 09-10 21:47 :00 No 1500mg 1,500 mg, IV Piggyback, ONCE, 1 dose, On 09/11/23 at 1630, Administer over 15 Minutes, 100 mL [facility] ondansetron (ZOFRAN (PF)) injection 4 mg 09-10 21:15: 00 09-10 21:15 :00 No 4mg 4 mg, Slow IV Push, ONCE, 1 dose, On 09/11/23 at 1615, GISELLE [facility] morphine (2 mg/mL) injection 4 mg 09-10 21:15: 00 09-10 21:15 :00 No 4mg 4 mg, Slow IV Push, ONCE, 1 dose, On 09/11/23 at 1615, STAT [facility] levETIRAcet am (KEPPRA) 750 mg tablet 09-10 00:00: 00 10-11 04:59 :00 No [id number] 750mg Take 1 tablet by mouth in the morning and 1 tablet in the evening. Do all this for 30 days. [facility] HYDROcodone -acetaminop hen 5-325 mg tablet 09-10 00:00: 00 09-18 04:59 :00 No [id number] 1{tbl} Take 1 tablet by mouth every 4 (four) hours as needed for Pain (scale 7-10) for up to 7 days. Indication s: acute pain [facility] Immunizations Ordered Immunization Name Filled Immunization Name Date Status Comments Source TD Pres-Free Unknown Completed [facility] TD Pres-Free Unknown Completed [facility] Vital Signs Vital Name Observation Time Observation Value Comments S ource Systolic blood pressure 2023-11-15 01:00:00 136 mm[Hg] [facility] Diastolic blood pressure 2023-11-15 01:00:00 83 mm[Hg] [facility] Heart rate 2023-11-15 01:00:00 70 /min [facility] Respiratory rate 2023-11-15 01:00:00 18 /min [facility] Oxygen saturation in Arterial blood by Pulse oximetry 2023-11-15 01:00:00 99 /min [facility] Body temperature 2023-11-14 22:35:00 36.83 Rosalba [facility] Body height 2023-11-14 22:35:00 167.6 cm [facility] Body weight 2023-11-14 22:35:00 69.4 kg [facility] BMI 2023-11-14 22:35:00 24.69 kg/m2 [facility] Systolic blood pressure 2023-09-12 01:07:00 137 mm[Hg] [facility] Diastolic blood pressure 2023-09-12 01:07:00 90 mm[Hg] [facility] Heart rate 2023-09-12 01:07:00 64 /min [facility] Respiratory rate 2023-09-12 01:07:00 18 /min [facility] Oxygen saturation in Arterial blood by Pulse oximetry 2023-09-12 01:07:00 100 /min [facility] Body temperature 2023-09-11 23:54:20 37.06 Rosalba [facility] Body height 2023-09-11 20:46:00 167.6 cm [facility] Body weight 2023-09-11 20:46:00 74.844 kg [facility] BMI 2023-09-11 20:46:00 26.63 kg/m2 [facility] Systolic blood pressure 2023-05-19 16:02:00 136 mm[Hg] [facility] Diastolic blood pressure 2023-05-19 16:02:00 86 mm[Hg] [facility] Heart rate 2023-05-19 16:01:00 74 /min [facility] Body temperature 2023-05-19 16:01:00 36.39 Rosalba [facility] Respiratory rate 2023-05-19 16:01:00 18 /min [facility] Body height 2023-05-19 16:01:00 172.7 cm [facility] Body weight 2023-05-19 16:01:00 74.844 kg [facility] BMI 2023-05-19 16:01:00 25.09 kg/m2 [facility] Oxygen saturation in Arterial blood by Pulse oximetry 2023-05-19 16:01:00 100 /min [facility] Procedures Procedure Date / Time Performed Performing Clinician Source CT HEAD WO CONTRAST 2023-11-14 23:28:03 Marc Mathew [facility] BASIC METABOLIC PANEL (NA, K, CL, CO2, GLUCOSE, BUN, CREATININE, CA) 2023-11-14 23:02:00 Marc Mathew [facility] CBC WITH DIFF 2023-11-14 23:02:00 Marc Mathew [facility] ED LACERATION REPAIR 2023-11-14 23:01:35 Marc Mathew [facility] EKG-12 LEAD 2023-09-11 23:31:22 Romario De Los Santos [facility] XR ELBOW <3 VW BILATERAL 2023-09-11 23:02:00 Diego Whitlock [facility] XR FOREARM 2 VW LEFT 2023-09-11 23:02:00 Zach Whitlock [facility] XR HUMERUS 2 VW LEFT 2023-09-11 23:02:00 Zach Whitlock [facility] EKG-12 LEAD 2023-09-11 22:31:17 Diego Whitlock [facility] URINALYSIS 2023-09-11 22:30:00 Diego Whitlock [facility] LACTIC ACID WHOLE BLOOD 2023-09-11 22:02:00 KamleshHer panteraconrad [facility] TROPONIN I 2023-09-11 22:01:00 Diego Whitlock [facility] COMP. METABOLIC PANEL (26477) 2023-09-11 22:01:00 Diego Whitlock [facility] CBC WITH DIFF 2023-09-11 22:01:00 [facility] 2023-09-11 22:01:00 [facility] KEPPRA (LEVETIRACETAM) 2023-09-11 22:01:00 [facility] 2023-09-11 21:49:00 Romario De Los Santos [facility] EKG-12 LEAD 2023-05-19 16:24:14 Dario Olsen [facility] Encounters Start Date/Time End Date/Time Encounter Type Admission Type Attending Clinicians Care Facility Care Department Encounter ID Source 2023-11-14 17:33:00 2023-11-14 20:35:00 Emergency Marc Mathew [facility] [id number] [facility] 2023-09-11 15:48:00 2023-09-11 21:52:00 Emergency Romario De Los Santos [facility] [id number] [facility] 2023-05-19 11:15:00 2023-05-19 11:24:00 Emergency X DARIO OLSEN [facility] ERT [id number] [facility] 2023-05-19 11:15:00 2023-05-19 11:24:00 Emergency Dario Olsen [facility] [id number] [facility] Results Test Description Test Time Test Comments Results Result Comments Source CT HEAD WO CONTRAST 00:21:49 EXAM: CT HEAD WO CONTRAST HISTORY: 23 years-old Male; Provided indication: Head trauma,moderate-severe . TECHNIQUE: Axial CT of the head was performed and reconstructed at 5 mmintervals. Coronal and sagittal reformatted images were generated. COMPARISON: CT head obtained on 09/11/2023 FINDINGS: The ventricles and cerebral sulci are normal in caliber and configuration.No midline shift or pathological extra-axial fluid collection is present.The basal cisterns are unremarkable. No acute intracranial hemorrhage or significant mass effect is visualized.No parenchymal attenuation abnormality is seen. The francis-white matterdifferentiation is preserved. The calvarium and central skull base are unremarkable. The mastoid aircells and visualized paranasal air sinuses are clear. [facility] [id number] 23:14:01* Test Item Value Reference Range Interpretation Comme nts WBC (test code = 6690-2) 13.16 4.20-10.70 H RBC (test code = 789-8) 5.27 4.26-5.52 HGB (test code = 718-7) 15.0 g/dL 12.2-16.4 HCT (test code = 4544-3) 45.4 % 38.4-49.3 MCV (test code = 787-2) 86.1 fL 81.7-95.6 MCH (test code = 785-6) 28.5 pg 26.1-32.7 MCHC (test code = 786-4) 33.0 g/dL 31.2-35.0 RDW-SD (test code = 07101-5) 43.9 fL 38.5-51.6 RDW-CV (test code = 788-0) 13.8 % 12.1-15.4 PLT (test code = 777-3) 336 150-328 H MPV (test code = 55789-8) 9.2 fL 9.8-13.0 L NRBC/100 WBC (test code = 0591290948) 0.0 0.0-10.0 NRBC x10^3 (test code = 7909388027) See_Comment [Automated messa ge] The system which generated this result transmitted reference range: 10*3/?L. The reference range was not used to interpret this result as normal/abnormal. GRAN MAT (NEUT) % (test code = 770-8) 72.3 % IMM GRAN % (test code = 3090727259) 0.80 % LYMPH % (test code = 736-9) 20.0 % MONO % (test code = 5905-5) 5.7 % EOS % (test code = 713-8) 0.8 % BASO % (test code = 706-2) 0.4 % GRAN MAT x10^3(ANC) (test code = 6009293811) 9.52 10*3/uL 1.99-6.95 H IMM GRAN x10^3 (test code = 2872812288) 0.10 10*3/uL 0.00-0.06 H LYMPH x10^3 (test code = 731-0) 2.63 10*3/uL 1.09-3.23 MONO x10^3 (test code = 742-7) 0.75 10*3/uL 0.36-1.02 EOS x10^3 (test code = 711-2) 0.11 10*3/uL 0.06-0.53 BASO x10^3 (test code = 704-7) 0.05 10*3/uL 0.01-0.09 Lab Interpretation (test code = 80323-0) Abnormal [facility] [id number] 23:01:35Marc Mathew MD ? ? 11/14/2023 ?7:52 PMLaceration Repair Date/Time: 11/14/2023 6:01 PM Performed by: Marc Mathew MDAuthorized by: Marc Mathew MD ?Consent: ?Consent obtained: ?Verbal ?Consentgiven by: ?Patient ?Risks discussed: ?Infection, need for additional repair and nerve damage ?Alternatives discussed: ?No treatmentUniversal protocol: ?Procedure explained and questions answered to patient or proxy's satisfaction: yes ? ?Relevant documents present and verified: yes ? ?Test results available: yes ? ?Imaging studies available: yes ? ?Required blood products, implants, devices, and special equipment available: no ? ?Site/side marked: yes ? ?Immediately prior to procedure, a time out was called: yes ? ?Patient identity confirmed: ?Verbally with patientAnesthesia: ?Anesthesia method: ?Local infiltration ?Local anesthetic: ?Lidocaine 1% WITH epiLaceration details: ?Location: ?Face ?Face location: ?R eyebrow ?Length (cm): ?5Pre- procedure details: ?Preparation: ?Patient was prepped and draped in usual sterile fashionExploration: ?Limited defect created (wound extended): no ? ?He mostasis achieved with: ?Direct pressure ?Wound exploration: wound explored through full range of motion ? ?Contaminated: no ?Treatment: ?Area cleansed with: ?Saline ?Amount of cleaning: ?Standard ?Irrigation solution: ?Sterile saline ?Visualized foreign bodies/material removed: no ? ?Debridement: ?NoneSkin repair: ?Repair method: ?Sutures ?Suture size: ?3-0 ?Suture material: ?Prolene ?Number of sutures: ?3Approximation: ?Approximation: ?[facility]Un[facility] FOR[facility] 2 VW [id number] 01:11:08EXAM: XR HUMERUS 2 VW LEFT, XR ELBOW <3 VW BILATERAL, XR FOREARM 2 VW LEFT HISTORY: 23 years-oldMale with trauma COMPARISON: None FINDINGS: Radiographs of the bilateral elbows, left humerus and left forearmdemonstrate possible subcentimeter mineralization anterior to the leftradial head, only seen on lateral view of the left forearm. Joint spacesare preserved. Alignment is within normal limits. Moderate sized left elbowjoint effusion. Dorsal left forearm soft tissue swelling.[facility] H[facility] 2 VW [id number] 01:11:08EXAM: XR HUMERUS 2 VW LEFT, XR ELBOW <3 VW BILATERAL, XR FOREARM 2 VW LEFT HISTORY: 23 years-oldMale with trauma COMPARISON: None FINDINGS: Radiographs of the bilateral elbows, left humerus and left forearmdemonstrate possible subcentimeter mineralization anterior to the leftradial head, only seen on lateral view of the left forearm. Joint spacesare preserved. Alignment is within normal limits. Moderate sized left elbowjoint effusion. Dorsal left forearm soft tissue swelling.[facility] ELBOW <3 VW [id number] 01:11:08EXAM: XR HUMERUS 2 VW LEFT, XR ELBOW [...] elbowjoint effusion. Dorsal left forearm soft tissue swelling.[facility] ParkwayLactic Acid Whole [id number] 22:18:12* Test Item Value Reference Range Interpretation Comme nts LACTIC ACID (test code = 6393249792) 4.21 mmol/L 0.50-2.20 H Lab Interpretation (test cod e = 95827-7) Abnormal [facility] ([facility]OMATED)2023-09-11 22:00:07* Test Item Value Reference Range Interpretation Comme nts POCT GLU (test code = 9210406386) 107 mg/dL 70-110 Lab Interpretation (test cod e = 40081-7) Normal [facility] Notes Date/Time Note Provider Source 2023-11-14 20:35:00 Ambulatory to transportation vehicle with two officers. Respirations even and unlabored, no distress noted. Jaxon Morales RN Jaxon Morales RN [facility] 2023-11-14 20:21:14 Patient given printed and verbal discharge instructions, encouraged hydration and proper nutrition. Patient verbalized understanding of instructions. Patient awake alert oriented, respirations even and unlabored, no acute distress noted, skin warm & dry, color appropriate for race, moves all extremities well. Patient encouraged to follow up with PCP and to keep all appropriate appointments as scheduled or to return to ED for new/prolonged/worsening of symptoms No adverse reaction to medications given in ER noted upon discharge PIV d'cd without complications, dressing to site, catheter intact. Officer in possession of all belongings. Awaiting ride. Jaxon Morales RN [facility] 2023-11-14 20:19:19 Bacitractin applied to laceration above right eyebrow and skin care between right 4th and 5th digit. Pt tolerated well. Bandaid applied to right hand per request. Provided with ice water per request. Awaiting transportation. [facility] 2023-11-14 19:35:54 MD at bedside for laceration repair to right eyebrow. [facility] 2023-11-14 19:26:58 Lidocaine, suture kit, sutures, saline and betadine at bedside. [facility] 2023-11-14 19:04:55 Nurse Report Report given to INDIA Morales. Chief complaint, assessment findings, infusion verify and orders reviewed. Plan of care discussed at bedside with patient and both nurses. Patient/family members verbalized understanding. ALEISHA DODD RN [facility] 2023-11-14 19:04:47 Report received from Nicolas Lerma RN. Patient verbalized understanding of plan of care. Patient A&O x4. VSS. NAD noted. Resp even and non labored. Skin warm and dry. IV patent. Remains on monitor technician, intermittent BP readings, continuous pulse oximetry. Officer at bedside. [facility] 2023-11-14 18:08:11 Irrigated wound above right eye. Patient tolerated well. [facility] 2023-11-14 17:33:36 Radha Ross is a 23 year old male, arrived to ED via EMS due to seizures. Reports history of seizure but did not take his medication due to being in the [facility] long-term. Per EMS patient woke up confused, and was found on the floor. No witnesses. Laceration to the right eye/forehead. Aleisha Dodd RN [facility] 2023-11-14 17:28:00 Associated Order(s): Laceration Repair [facility] Emergency Department Note Demographics Patient Name: Radha Ross Date of : 2000 23 year old Treatment Room: [facility] Primary Care Physician: PATIENT DOES NOT HAVE A PCP Pre Hospital Care Patient Escorted by: Law enforcement [8] Mode of Arrival: EMS - [place] [47] EMS Treatment Prior to ED Arrival: [employer] treatment: None ED Events Date/Time Event User Comments 11/14/23 1735 Medical Screening Begins MARC MATHEW MD -- 11/14/231734 First Provider Evaluation MARC MATHEW MD -- Chief complaint Chief Complaint Patient presents with Seizures ED Triage Notes Aleisha Dodd RN 11/14/2023 17:35 Radha Ross is a 23 year old male, arrived to ED via EMS due to seizures. Reports history of seizure but did not take his medication due to being in the [facility] long-term. Per EMS patient woke up confused, and was found on the floor. No witnesses. Laceration to the right eye/forehead. Chief Complaint Patient presents with Seizures History of present illness HPI 23 yo [facility] inmate comes to the ED for evaluation of seizure activity with a fall and right forehead laceration. H/o seizures and takes keppra. Denies any other medical problems. He also reports a previous injury to left hand with swelling not associated to this fall. BP 134/78 | Pulse 58 | Temp 36.8 ?C (98.3 ?F) (Oral) | Resp 17 | Ht 1.676 m (5' 6") | Wt 69.4 kg (153 lb) | SpO2 99% | BMI 24.69 kg/m? Past Medical and Social History History reviewed. No pertinent past medical history. Tetanus received in last 5 years: Yes Childhood immunizations: Up-to-date Past Surgical History History reviewed. No pertinent surgical history. Medications Medications ondansetron (ZOFRAN (PF)) injection 4 mg (4 mg Slow IV Push Given 11/14/231748) levETIRAcetam (KEPPRA) in NACL (ISO-OS) 1,000 mg/100 mL RTU (0 mg IV Piggyback Stopped 11/14/231855) Allergies Allergies Allergen Reactions Avocado Swelling Review of Systems Review of Systems Constitutional: Negative. HENT: Negative. Eyes: Negative. Respiratory: Negative. Breasts: Negative. Cardiovascular: Negative. Gastrointestinal: Negative. Genitourinary: Negative. Musculoskeletal: Negative. Skin: Negative. Neurological: Negative. Psychiatric/Behavioral: Negative. Endocrine: Endocrine negative Physical Exam BP 134/78 | Pulse 58 | Temp 36.8 ?C (98.3 ?F) (Oral) | Resp 17 | Ht 1.676 m (5' 6") | Wt 69.4 kg (153 lb) | SpO2 99% | BMI 24.69 kg/m? Physical Exam Vitals and nursing note reviewed. Constitutional: General: He is not in acute distress. Appearance: He is well-developed. He is not ill-appearing. HENT: Head: Normocephalic. Comments: Right face laceration just lateral to right eye Right Ear: Ear canal and external ear normal. Left Ear: Ear canal and external ear normal. Nose: Nose normal. No congestion or rhinorrhea. Mouth/Throat: Mouth: Mucous membranes are moist. Pharynx: Oropharynx is clear. No oropharyngeal exudate or posterior oropharyngeal erythema. Eyes: General: Right eye: No discharge. Left eye: No discharge. Conjunctiva/sclera: Conjunctivae normal. Pupils: Pupils are equal, round, and reactive to light. Cardiovascular: Rate and Rhythm: Normal rate and regular rhythm. Pulses: Normal pulses. Heart sounds: Normal heart sounds. No murmur heard. No friction rub. Pulmonary: Effort: Pulmonary effort is normal. No respiratory distress. Breath sounds: Normal breath sounds. No stridor. No wheezing or rhonchi. Abdominal: General: Bowel sounds are normal. There is no distension. Palpations: Abdomen is soft. There is no mass. Tenderness: There is no abdominal tenderness. Hernia: No hernia is present. Musculoskeletal: General: Swelling (left hand swelling and bruising) present. No tenderness, deformity or signs of injury. Normal range of motion. Cervical back: Normal range of motion and neck supple. No rigidity or tenderness. Skin: General: Skin is warm and dry. Capillary Refill: Capillary refill takes less than 2 seconds. Coloration: Skin is not jaundiced or pale. Findings: No bruising or erythema. Neurological: General: No focal deficit present. Mental Status: He is alert and oriented to person, place, and time. Cranial Nerves: No cranial nerve deficit. Sensory: No sensory deficit. Motor: No weakness. Coordination: Coordination normal. Psychiatric: Mood and Affect: Mood normal. Behavior: Behavior normal. Thought Content: Thought content normal. Judgment: Judgment normal. Labs and Studies Lab Results CBC WITH DIFF - Abnormal Result Value Ref Range WBC 13.16 (*) 4.20 - 10.70 10*3/?L RBC 5.27 4.26 - 5.52 10*6/?L HGB 15.0 12.2 - 16.4 g/dL HCT 45.4 38.4 - 49.3 % MCV 86.1 81.7 - 95.6 fL MCH 28.5 26.1 - 32.7 pg MCHC 33.0 31.2 - 35.0 g/dL RDW-SD 43.9 38.5 - 51.6 fL RDW-CV 13.8 12.1 - 15.4 % PLT 336 (*) 150 - 328 10*3/?L MPV 9.2 (*) 9.8 - 13.0 fL NRBC/100 WBC 0.0 0.0 - 10.0 /100 WBCs NRBC x10 3 <0.01 10*3/?L GRAN MAT (NEUT) % 72.3 % IMM GRAN % 0.80 % LYMPH % 20.0 % MONO % 5.7 % EOS % 0.8 % BASO % 0.4 % GRAN MAT x10 3 (ANC) 9.52 (*) 1.99 - 6.95 10*3/uL IMM GRAN x10 3 0.10 (*) 0.00 - 0.06 10*3/uL LYMPH x10 3 2.63 1.09 - 3.23 10*3/uL MONO x10 3 0.75 0.36 - 1.02 10*3/uL EOS x10 3 0.11 0.06 - 0.53 10*3/uL BASO x10 3 0.05 0.01 - 0.09 10*3/uL BASIC METABOLIC PANEL (NA, K, CL, CO2, GLUCOSE, BUN, CREATININE, CA) - Abnormal NA 139 135 - 145 mmol/L K 3.8 3.5 - 5.0 mmol/L CL 104 98 - 108 mmol/L CO2 TOTAL 12 (*) 23 - 31 mmol/L AGAP 23 (*) 2 - 16 BUN 11 7 - 23 mg/dL GLUCOSE 139 (*) 70 - 110 mg/dL CREATININE 0.80 0.60 - 1.25 mg/dL CALCIUM 9.8 8.6 - 10.6 mg/dL eGFR 127.5 mL/min/1.73m2 CT HEAD WO CONTRAST Final Result EXAM: CT HEAD WO CONTRAST HISTORY: 23 years-old Male; Provided indication: Head trauma, moderate-severe . TECHNIQUE: Axial CT of the head was performed and reconstructed at 5 mm intervals. Coronal and sagittal reformatted images were generated. COMPARISON: CT head obtained on 09/11/2023 FINDINGS: The ventricles and cerebral sulci are normal in caliber and configuration. No midline shift or pathological extra-axial fluid collection is present. The basal cisterns are unremarkable. No acute intracranial hemorrhage or significant mass effect is visualized. No parenchymal attenuation abnormality is seen. The francis-white matter differentiation is preserved. The calvarium and central skull base are unremarkable. The mastoid air cells and visualized paranasal air sinuses are clear. IMPRESSION No acute intracranial abnormality. XR HAND 3+ VW RIGHT Preliminary Result EXAM: XR HAND 3+ VW RIGHT HISTORY: hand swelling ; COMPARISON: none FINDINGS: Radiographs of the right hand demonstrate no acute fracture or dislocation. The joint spaces are maintained. No soft tissue abnormality is seen. IMPRESSION No acute fracture or dislocation. Preliminary Report Dictated by Resident: Whitley Naylor Orders and Treatments Orders Placed This Encounter Procedures Laceration Repair CT HEAD WO CONTRAST XR HAND 3+ VW RIGHT Cbc with Diff Basic Metabolic Panel (NA, K, CL, CO2, GLUCOSE, BUN, CREATININE, CA) Orders Placed This Encounter Medications ondansetron (ZOFRAN (PF)) injection 4 mg levETIRAcetam (KEPPRA) in NACL (ISO-OS) 1,000 mg/100 mL RTU Patient's Medications No medications on file Procedures Laceration Repair Date/Time: 11/14/2023 6:01 PM Performed by: Marc Mathew MD Authorized by: Marc Mathew MD Consent: Consent obtained: Verbal Consent given by: Patient Risks discussed: Infection, need for additional repair and nerve damage Alternatives discussed: No treatment [place] protocol: Procedure explained and questions answered to patient or proxy's satisfaction: yes Relevant documents present and verified: yes Test results available: yes Imaging studies available: yes Required blood products, implants, devices, and special equipment available: no Site/side marked: yes Immediately prior to procedure, a time out was called: yes Patient identity confirmed: Verbally with patient Anesthesia: Anesthesia method: Local infiltration Local anesthetic: Lidocaine 1% WITH epi Laceration details: Location: Face Face location: R eyebrow Length (cm): 5 Pre-procedure details: Preparation: Patient was prepped and draped in usual sterile fashion Exploration: Limited defect created (wound extended): no Hemostasis achieved with: Direct pressure Wound exploration: wound explored through full range of motion Contaminated: no Treatment: Area cleansed with: Saline Amount of cleaning: Standard Irrigation solution: Sterile saline Visualized foreign bodies/material removed: no Debridement: None Skin repair: Repair method: Sutures Suture size: 3-0 Suture material: Prolene Number of sutures: 3 Approximation: Approximation: Close Evidence Care MDM & Notes Patient was evaluated for an emergency medical condition related to Seizures Diagnoses considered but not limited to: Seizure Labs:were ordered, and resulted, any relevant abnormalities were considered. Abnormal Labs Reviewed CBC WITH DIFF - Abnormal; Notable for the following components: Result Value WBC 13.16 (*) PLT 336 (*) MPV 9.2 (*) GRAN MAT x10 3 (ANC) 9.52 (*) IMM GRAN x10 3 0.10 (*) All other components within normal limits BASIC METABOLIC PANEL (NA, K, CL, CO2, GLUCOSE, BUN, CREATININE, CA) - Abnormal; Notable for the following components: CO2 TOTAL 12 (*) AGAP 23 (*) GLUCOSE 139 (*) All other components within normal limits Imaging:Ordered, and resulted, any relevant abnormalities were considered. Diagnosis/Impression as of 11/14/231951 Seizure Contusion of scalp, initial encounter Laceration of forehead, initial encounter Medical Decision Making Assessment and Plan: 23 yo comes to the ED for evaluation of seizure and facial laceration sustained after fall from bed. Patient reports h/o seizure disorder. Recently with injury to left hand. Denies any other problems or medications. Will check cbc, basic and order a CT head, repair laceration and will get an x ray of the left hand. Discussion: CT head negative, normal x ray of the hand. Lac repair at bedside, Keppra given in the ED. Continue home medications, f/u with PCP and return to the ED if worsening of symptoms. Problems Addressed: Contusion of scalp, initial encounter: complicated acute illness or injury Laceration of forehead, initial encounter: complicated acute illness or injury Seizure: chronic illness or injury with exacerbation, progression, or side effects of treatment Amount and/or Complexity of Data Reviewed Labs: ordered. Details: Recent Results (from the past 24 hour(s)) -Cbc with Diff: Collection Time: 11/14/23 6:02 PM Result Value Ref Range WBC 13.16 (H) 4.20 - 10.70 10*3/?L RBC 5.27 4.26 - 5.52 10*6/?L HGB 15.0 12.2 - 16.4 g/dL HCT 45.4 38.4 - 49.3 % MCV 86.1 81.7 - 95.6 fL MCH 28.5 26.1 - 32.7 pg MCHC 33.0 31.2 - 35.0 g/dL RDW-SD 43.9 38.5 - 51.6 fL RDW-CV 13.8 12.1 - 15.4 % PLT 336 (H) 150 - 328 10*3/?L MPV 9.2 (L) 9.8 - 13.0 fL NRBC/100 WBC 0.0 0.0 - 10.0 /100 WBCs NRBC x10 3 <0.01 10*3/?L GRAN MAT (NEUT) % 72.3 % IMM GRAN % 0.80 % LYMPH % 20.0 % MONO % 5.7 % EOS % 0.8 % BASO % 0.4 % GRAN MAT x10 3 (ANC) 9.52 (H) 1.99 - 6.95 10*3/uL IMM GRAN x10 3 0.10 (H) 0.00 - 0.06 10*3/uL LYMPH x10 3 2.63 1.09 - 3.23 10*3/uL MONO x10 3 0.75 0.36 - 1.02 10*3/uL EOS x10 3 0.11 0.06 - 0.53 10*3/uL BASO x10 3 0.05 0.01 - 0.09 10*3/uL -Basic Metabolic Panel (NA, K, CL, CO2, GLUCOSE, BUN, CREATININE, CA): Collection Time: 11/14/23 6:02 PM Result Value Ref Range NA 139 135 - 145 mmol/L K 3.8 3.5 - 5.0 mmol/L CL 104 98 - 108 mmol/L CO2 TOTAL 12 (L) 23 - 31 mmol/L AGAP 23 (H) 2 - 16 BUN 11 7 - 23 mg/dL GLUCOSE 139 (H) 70 - 110 mg/dL CREATININE 0.80 0.60 - 1.25 mg/dL CALCIUM 9.8 8.6 - 10.6 mg/dL eGFR 127.5 mL/min/1.73m2 Radiology: ordered. Details: Hospital Encounter on 11/14/23 -XR HAND 3+ VW RIGHT: Narrative EXAM: XR HAND 3+ VW RIGHT HISTORY: hand swelling ; COMPARISON: none FINDINGS: Radiographs of the right hand demonstrate no acute fracture or dislocation. The joint spaces are maintained. No soft tissue abnormality is seen. Impression No acute fracture or dislocation. Preliminary Report Dictated by Resident: Whitley Naylor -CT HEAD WO CONTRAST: Narrative EXAM: CT HEAD WO CONTRAST HISTORY: 23 years-old Male; Provided indication: Head trauma, moderate-severe . TECHNIQUE: Axial CT of the head was performed and reconstructed at 5 mm intervals. Coronal and sagittal reformatted images were generated. COMPARISON: CT head obtained on 09/11/2023 FINDINGS: The ventricles and cerebral sulci are normal in caliber and configuration. No midline shift or pathological extra-axial fluid collection is present. The basal cisterns are unremarkable. No acute intracranial hemorrhage or significant mass effect is visualized. No parenchymal attenuation abnormality is seen. The francis-white matter differentiation is preserved. The calvarium and central skull base are unremarkable. The mastoid air cells and visualized paranasal air sinuses are clear. Impression No acute intracranial abnormality. Risk Prescription drug management. Pulse Oximetry: is not hypoxic. Interpreted. Reassessment:stable Limitations to patient care and compliance: none. Plan & Summary: Radha Ross is a 23 year old male presenting for complaint(s) listed within the note. Patient has been deemed stable for discharge. Follow up with providers listed below for further evaluation and management. Return precautions given if symptoms worsen as documented in the discharge instructions. History, physical exam findings, results of visit, diagnosis, medication regimens and plan of future care have been considered. Additional MDM may be found in the ED course. Vital signs were rechecked before final disposition and determined to be stable. Disposition & Follow Up ED Disposition ED Disposition Disch - Home Condition Stable Comment -- Patient's Medications No medications on file Diagnoses ICD-10-CM 1. Seizure R56.9 2. Contusion of scalp, initial encounter S00.03XA 3. Laceration of forehead, initial encounter S01.81XA Disposition and Condition ED Disposition ED Disposition Disch - Home Condition Stable Comment -- Patient's Medications No medications on file [employer] is used frequently and may produce errors. Promptly contact for obvious discrepancies. Marc Mathew MD, FACEP, FAAEM [employer] Manager of Emergency and Internal Medicine [facility] #[id number] Marc Mathew MD 11/14/231951 [facility] 2023-09-11 21:52:00 Pt leaves AMA, provided prescriptions by MD Damon Darrin Torres RN [facility] 2023-09-11 20:42:32 Pt wishing to leave AMA per MD Damon she must splint pt arm first, pt verbalizes understanding [facility] 2023-09-11 20:01:45 Neuro at bedside [facility] 2023-09-11 19:13:12 Introduced self to pt, pt in stretcher side rails upx2 bed in lowest position, seizure safety equipment at bedside. [facility] 2023-09-11 19:08:11 Spoke with EMS and confirmed that they did not find his phone on the truck. [facility] 2023-09-11 18:31:22 Associated Order(s): EKG-12 Lead ROUTINE ONCE Pre-Procedure Diagnose(s): Seizure Post-Procedure Diagnose(s): Seizure EKG-12 Lead ROUTINE ONCE Date/Time: 09/11/2023 6:30 PM Performed by: Romario De Los Santos MD Authorized by: Romario De Los Santos MD ECG interpreted by ED Physician in the absence of a line lead: yes Previous ECG: Previous ECG: Compared to current Similarity: No change Comparison ECG info: 05/15/23 Interpretation: Interpretation: normal Rate: ECG rate: 68 ECG rate assessment: normal Rhythm: Rhythm: sinus rhythm Ectopy: Ectopy: none QRS: QRS axis: Normal QRS intervals: Normal QRS conduction: normal ST segments: ST segments: Normal T waves: T waves: normal Q waves: Abnormal Q-waves: not present [facility] 2023-09-11 16:00:00 Radha Cody is a 23 year old male that arrived to [facility] ER via EMS from From [facility] with complaints of gran mal seizure with resulting fall/injuries. Patient arrives postictal and slightly confused. He is reporting 10/10 pain in both elbows and his head where he has a small lac. is at is at the bedside and witnessed the seizure. Patient has been placed on all monitors and is slightly hypertensive. [facility] 2023-09-11 15:45:20 Radha Ross is a 23 year old male brought in by EMS from [facility] with complaint of witnessed seizure. Fall from standing during seizure, laceration to posterior head, no active bleeding. Patient is alert and oriented x 4, respirations even and unlabored, skin color appropriate to race. Pt reports non-complaince with Keppra. Treatment prior to arrival: Zofran 4mg Patient to room for evaluation. Ramila Hunter RN [facility] 2023-09-11 15:44:00 Associated Order(s): EKG-12 Lead ROUTINE ONCE Pre-Procedure Diagnose(s): Seizure Post-Procedure Diagnose(s): Seizure Images from the original note were not included. [facility] Emergency Department Note Patient Name: Radha Ross Date of : 2000 23 year old male Treatment Room: [facility] Primary Care Physician: PATIENT DOES NOT HAVE [...] and says [place] [employer] [place] when the patient suddenly went up [...] - 110 mg/dL URINALYSIS COMP. METABOLIC PANEL (94942) TROPONIN I KEPPRA (LEVETIRACETAM) EKG: If EKG completed, see Procedure Note. Orders and Treatments: Orders Placed This Encounter Procedures CT HEAD WO CONTRAST XR FOREARM 2 VW LEFT XR HUMERUS 2 VW LEFT XR ELBOW <3 VW BILATERAL CBC WITH DIFF PROTHROMBIN TIME / INR URINALYSIS COMP. METABOLIC PANEL (45220) TROPONIN I Lactic Acid Whole Blood Lactic [...] as of 09/11/23 2146 Sat Sep 11, 2023 185 Change of shift, patient endorsed to Dr Lizama pending CT scan, repeat labs and reassessment. [CD] 1848 Patient is requesting something for the arm pain. Waldo ordered. I explained all the current results [...] Report Dictated by Resident: Brie Causey [CD] 1832 WBC x10 3 (!): 12.91 Assessing for infection, likely reactive secondary to seizure [CD] 1831 TROPONIN I: 0.015 [CD] 1832 CO2 TOTAL(!): [...] by his significant other [place] [facility] [place]. 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 2023-09-11 15:44:00 1700 23-year-old male with history of seizures, noncompliant with his Keppra, comes in after witnessed seizure by his significant other [place] of [place] [facility] [place]. 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 CN informed. Carol Zaragoza RN [facility] 2023-05-19 11:15:00 Patient left AMA vitally stable and ambulatory in steady gait accompanied by significant other. T [facility] 2023-05-19 10:59:53 Patient states "I was at work and was going to get something from locker and I woke up to my employees in front of me, and they said I went face first and hit my head. I woke up five minutes later." [facility]
[2024-06-15] MEDS ORDERED: LEVETIRACETAM 500 MG/5 ML VIAL IV ONE (15:19)
[2024-06-15] MEDS ORDERED: ONDANSETRON 4 MG/2 ML VIAL ONE (15:19)
[2024-06-15] MEDS ORDERED: NA CHLORIDE 0.9% 1,000 ML ONE (15:19)
[2024-06-15] MEDS ORDERED: NA CHLORIDE 0.9% 100 ML ONE (15:20)
[2024-06-15] MEDS ORDERED: LIDOCAINE 1% 20 ML MDV ONE (16:14)
[2024-06-15] MEDS ORDERED: TDAP (DIPHTH,PERTUSS(ACELL),TET VAC) 0.5 ML VIAL IMVAC ONE (16:15)
[2024-06-15 16:16] LABS: Absolute Basophils 0.1 K/uL (0-0.5); Absolute Eosinophils 0.1 K/uL (0-0.5); Absolute Lymphocytes (CBC) 4.4 K/uL (0.7-4.9); Basophils % 0.6 % (0-1.3); Eosinophils % 0.6 % (0-4.4); Hematocrit 44.5 % (39.6-49.0); Hemoglobin 15.3 g/dL (13.6-17.9); Lymphocytes % 23.5 % (15.3-44.8); MCH 28.6 pg (27.0-35.0); MCHC 34.5 g/dL (32.0-36.0); MCV 82.8 fL (80-100); MPV 7.1 fL (7.6-11.3); Monocytes % 5.4 % (3.3-12.3); Neutrophils % 69.9 % (41.7-73.7); Nucleated Red Blood Cells % 0.1 % (0-0); Platelets 358 thou/uL (152-406); RBC Red Blood Cell Count 5.37 M/uL (4.33-5.43); Red Cell Distribution Width 14.4 % (12.1-15.2)
[2024-06-15 16:35] LABS: Albumin 5.2 g/dL (3.4-5.0); Albumin/Globulin Ratio 1.2 (1.1-1.8); Anion Gap 15.5 mEq/L (5.0-15.0); Bilirubin Total 0.5 mg/dL (0.2-1.0); Globulin 4.5 g/dL (2.3-3.5); Potassium 3.5 mEq/L (3.5-5.1); Protein, Total 9.7 g/dL (6.4-8.2)
--- NOTE | 2024-06-15 17:26 | RAD REPORT ---
EXAM: Chest Single View HISTORY: 24 years Male PAIN COMPARISON: 04/22/2023 FINDINGS: LUNGS/PLEURA: The lungs are clear. No pleural effusions or pneumothorax. No pulmonary edema. CARDIAC/MEDIASTINUM: The cardiac silhouette is within normal limits. UPPER ABDOMEN: No significant abnormality. BONES: No acute abnormality. LINES/TUBES/OTHER: N/A IMPRESSION: No evidence of acute cardiopulmonary disease. No significant change from prior.
--- NOTE | 2024-06-15 17:40 | EDPHYS ---
Physician Documentation [facility] Name: Joselito Ross Age: 24 yrs Sex: Male : 2000 Arrival Date: 06/15/2024 Time: 15:00 Bed 7 Private MD: ED Physician Mckayla Tariq HPI: 06/15 15:18 This 24 yrs old Male presents to ER via EMS with complaints of seizure. sw6 15:18 The patient presents after having a single isolated seizure. Context: the seizure(s) sw6 was witnessed, by a bystander, occurred while the patient was walking. Seizure Hx: yes. has not been on his keppra in over a month. EMS care: none. The patient presents to the EMS for evaluation status post witnessed seizure while walking to the store. The episode was witnessed by bystanders who called 911. The patient does have a history of seizures and is supposed to be on Keppra but admits to noncompliance. He last took his medication over a month ago. According to his mother the normal postictal period for him include significant amounts of nausea and vomiting which she is actively doing right now. No medication given by EMS prior to arrival. He denies any headache or neck pain. No arm or leg pain. Here for evaluation. Historical: - Allergies: 15:08 avacadoes; bp - Home Meds: 15:08 Keppra Oral [Active]; bp - PMHx: 15:08 Asthma; Seizure; bp - Immunization history:: Adult Immunizations up to date. - Infectious Disease History:: Denies. - Social history:: Smoking status: Patient denies any tobacco usage or history of. ROS: 15:18 Constitutional: Negative for fever, chills, and weight loss, Cardiovascular: Negative sw6 for chest pain, palpitations, and edema, Respiratory: Negative for shortness of breath, cough, wheezing, and pleuritic chest pain, 15:18 Abdomen/GI: Positive for nausea and vomiting, 15:18 Neuro: Positive for seizure activity, 15:18 All other systems are negative, Exam: 15:18 Constitutional: This is a well developed, well nourished patient who is awake, alert, sw6 and in no acute distress. Chest/axilla: Normal chest wall appearance and motion. Nontender with no deformity. No lesions are appreciated. Cardiovascular: Regular rate and rhythm with a normal S1 and S2. No gallops, murmurs, or rubs. Normal PMI, no JVD. No pulse deficits. Respiratory: Lungs have equal breath sounds bilaterally, clear to auscultation and percussion. No rales, rhonchi or wheezes noted. No increased work of breathing, no retractions or nasal flaring. Abdomen/GI: Soft, non-tender, with normal bowel sounds. No distension or tympany. No guarding or rebound. No evidence of tenderness throughout. MS/ Extremity: Pulses equal, no cyanosis. Neurovascular intact. Full, normal range of motion. Neuro: Awake and alert, GCS 15, oriented to person, place, time, and situation. Cranial nerves II-XII grossly intact. Motor strength 5/5 in all extremities. Sensory grossly intact. Cerebellar exam normal. Normal gait. Psych: Awake, alert, with orientation to person, place and time. Behavior, mood, and affect are within normal limits. 15:18 Head/face: Noted is abrasion(s), that are mild, 16:41 ENT: 4 cm laceration under the chin that is not actively bleeding. Vital Signs: 15:07 BP 130 / 93; Pulse 110; Resp 16; Temp 98; Pulse Ox 98% ; bp 16:30 BP 142 / 88; Pulse 87; Resp 16; Pulse Ox 100% on R/A; db 17:00 BP 142 / 97; Pulse 71; Resp 18; Pulse Ox 100% on R/A; db 17:30 BP 143 / 98; Pulse 65; Resp 16; Pulse Ox 100% ; db 18:00 BP 151 / 97; Pulse 62; Resp 18; Pulse Ox 100% on R/A; db Laceration: 16:41 Wound Repair of 4cm ( 1.6in ) subcutaneous laceration to chin. Distal sw6 neuro/vascular/tendon intact. Wound prep: Simple cleansing by me. Skin closed with 4 4-0 Prolene using simple sutures and sterile technique. Patient tolerated well. MDM: 15:08 Medical Screening Exam initiated 15:18 Differential diagnosis: seizure. Data reviewed: vital signs, nurses notes, EMS record. 17:36 Data reviewed: lab test result(s), CBC, electrolytes, radiologic studies, plain films. ED course: The patient is doing well here in the ER. He has remained seizure-free since his arrival to the ER. His chin laceration was repaired as documented above. His laboratory studies show a leukocytosis which was likely related to his fall and seizure today. His chest x-ray shows no rib fractures or any signs of a hemo or pneumothorax. He will need to have his sutures removed in 7 days. Will also refill his Keppra as he reports he has not left at home. He remained stable here in the ER and is okay for discharge home with PCP follow-up.. 06/15 15:14 Order name: CBC with Diff; Complete Time: 17:32 [facility] 06/15 17:32 Interpretation: Abnormal: Leukocytosis. [facility] 06/15 15:14 Order name: CMP; Complete Time: 17:32 [facility] 06/15 17:32 Interpretation: Within normal limits. [facility] 06/15 16:41 Order name: CXR XRAY; Complete Time: 17:32 [facility] 06/15 17:32 Interpretation: No acute disease. [facility] 06/15 15:14 Order name: IV Saline Lock; Complete Time: 15:58 [facility] 06/15 15:14 Order name: Labs collected and sent; Complete Time: 15:58 Administered Medications: 15:50 Drug: Ondansetron IVP 4 mg IVP once; over 2 minutes Route: IVP; Site: right antecubital;db 16:32 Follow up: Response: No adverse reaction db 15:50 Drug: NS 0.9% IV 1000 ml IV at 1 bolus Per protocol; to be given as a bolus over 60 db minutes Route: IV; Rate: 1 bolus; Site: right antecubital; 18:26 Follow up: Response: No adverse reaction; IV Status: Completed infusion; IV Intake: db 1000ml 15:50 Drug: Keppra IV 1000 mg IV at calculated rate once Route: IV; Rate: calculated rate; db Site: right antecubital; 18:26 Follow up: Response: No adverse reaction; IV Status: Completed infusion; IV Intake: db 100ml 16:24 Drug: Lidocaine Infiltration (1 %) 10 ml 20 ml Infiltration once; to bedside {Note: db GIVEN TO PROVIDER FOR ADMINISTRATION.} Volume: 20 ml; Route: Infiltration; 16:32 CANCELLED (Duplicate Order): tetanus-diphtheria toxoidadult 0.5 ml IM once; Provide db Vaccine Information Statement (VIS). 16:32 Drug: Boostrix Tdap IM 0.5 ml IM once; as a single dose Route: IM; Site: right deltoid; db 18:26 Follow up: Response: (VIS) Vaccine information sheet provided today. Questions and/or db concerns addressed. VIS edition date: Sep 27, 2020. 17:45 Drug: fentaNYL (PF) IVP 50 mcg IVP once Route: IVP; Site: right antecubital; db 18:26 Follow up: Response: Pain is decreased db Disposition Summary: 06/15/24 17:39 Discharge Ordered Notes: Location: Home sw6 Condition: Stable sw6 Diagnosis - Other seizures sw6 - chin laceration 4cm sw6 Followup: sw6 - With: Private Physician - When: 5 - 6 days - Reason: Staple/Suture removal Discharge Instructions: - Discharge Summary Sheet sw6 - Facial Laceration sw6 - Seizure, Adult sw6 Forms: - Medication Reconciliation Form 6 - Antibiotic Education 6 - Prescription Opioid Use sw6 - Patient Portal Instructions 6 - Leadership Thank You Letter 6 Prescriptions: - Keppra 500 mg Oral tablet - take 1 tablet ORAL route every 12 hours; 60 tablet; Refills: 0, Product 6 Selection Permitted Signatures: Dispatcher [employer] Ezekiel Shah RN RN bp Sue Luz RN RN db Mckayla Tariq MD MD 6 Corrections: (The following items were deleted from the chart) 15:15 15:15 CBC+H.LAB.BRZ ordered. EDMS EDMS 15:15 15:15 COMPREHENSIVE METABOLIC PANEL+C.LAB.BRZ ordered. EDMS EDMS 16:32 15:58 Tetanus-Diphtheria Toxoid IM Adult 0.5 ml IM once; Provide Vaccine Information db Statement (VIS). ordered. sw6 16:32 16:32 Tetanus-Diphtheria Toxoid IM Adult 0.5 ml IM once; Provide Vaccine Information db Statement (VIS). ordered. db
--- NOTE | 2024-06-15 17:40 | ER ---
Nurse's Notes [facility] Name: Joselito Ross Age: 24 yrs Sex: Male : 2000 Arrival Date: 06/15/2024 Time: 15:00 Bed 7 Private MD: Diagnosis: Other seizures;chin laceration 4cm Presentation: 06/15 15:07 Chief complaint: EMS states: [facility]. Coronavirus screen: At this time, the bp client does not indicate any symptoms associated with coronavirus-19. Ebola Screen: No symptoms or risks identified at this time. Initial Sepsis Screen: Does the patient meet any 2 criteria? HR > 90 bpm. No. Patient's initial sepsis screen is negative. Does the patient have a suspected source of infection? No. Patient's initial sepsis screen is negative. Risk Assessment: Do you want to hurt yourself or someone else? Patient reports no desire to harm self or others. Note NON-COMPLIANT WITH MEDS. Onset of symptoms was June 15, 2024 at 14:00. Care prior to arrival: PT REFUSED. 15:07 Method Of Arrival: EMS: [facility] bp 15:07 Acuity: JESSIE 3 bp Triage Assessment: 15:08 General: Appears in no apparent distress. unkempt, Behavior is agitated, anxious. Pain: bp Denies pain. EENT: No deficits noted. Neuro: Seizure activity reported prior to arrival. Type of seizure: tonic-clonic seizure. Cardiovascular: No deficits noted. Respiratory: No deficits noted. GI: No deficits noted. : No signs and/or symptoms were reported regarding the genitourinary system. Derm: No deficits noted. Musculoskeletal: No deficits noted. Historical: - Allergies: 15:08 avacadoes; bp - Home Meds: 15:08 Keppra Oral [Active]; bp - PMHx: 15:08 Asthma; Seizure; bp - Immunization history:: Adult Immunizations up to date. - Infectious Disease History:: Denies. - Social history:: Smoking status: Patient denies any tobacco usage or history of. Screenin:11 [facility] ED Fall Risk Assessment (Adult) History of falling in the last 3 months, bp including since admission No falls in past 3 months (0 pts) Confusion or Disorientation No (0 pts) Intoxicated or Sedated No (0 pts) Impaired Gait No (0 pts) Mobility Assist Device Used No (0 pt) Altered Elimination No (0 pt) Score/Fall Risk Level 0 - 2 = Low Risk Oriented to surroundings. Abuse screen: Denies threats or abuse. Denies injuries from another. Nutritional screening: No deficits noted. Tuberculosis screening: No symptoms or risk factors identified. Assessment: 15:11 General: Appears in no apparent distress. unkempt. bp 16:30 Reassessment: Patient appears in no apparent distress at this time. Patient and/or db family updated on plan of care and expected duration. Pain level reassessed. Patient is alert, oriented x 3, equal unlabored respirations, skin warm/dry/pink. General: Appears in no apparent distress. comfortable. Neuro: Level of Consciousness is awake, alert, obeys commands, Oriented to person, place, time, situation. 16:32 Reassessment: DR. ASHER IS AT PATIENT BEDSIDE. db 16:33 Derm: Wound noted. Injury Description: Laceration sustained to chin. db 18:24 Reassessment: Patient appears in no apparent distress at this time. Patient and/or db family updated on plan of care and expected duration. Pain level reassessed. Patient is alert, oriented x 3, equal unlabored respirations, skin warm/dry/pink. Patient states feeling better. Patient states symptoms have improved. Neuro: Level of Consciousness is awake, alert, obeys commands. Respiratory: Airway is patent Respiratory effort is even, unlabored, Respiratory pattern is regular, symmetrical. Vital Signs: 15:07 BP 130 / 93; Pulse 110; Resp 16; Temp 98; Pulse Ox 98% ; bp 16:30 BP 142 / 88; Pulse 87; Resp 16; Pulse Ox 100% on R/A; db 17:00 BP 142 / 97; Pulse 71; Resp 18; Pulse Ox 100% on R/A; db 17:30 BP 143 / 98; Pulse 65; Resp 16; Pulse Ox 100% ; db 18:00 BP 151 / 97; Pulse 62; Resp 18; Pulse Ox 100% on R/A; db ED Course: 15:04 Patient arrived in ED. bd 15:06 Ezekiel Mejia, [place] is Primary Nurse. bp 15:08 Mckayla Asher MD is Attending Physician. sw6 15:08 Triage completed. bp 15:08 Arm band placed on. bp 15:11 Patient has correct armband on for positive identification. bp 15:50 Initial lab(s) drawn, by me, sent to lab. Inserted saline lock: 20 gauge in right db antecubital area, using aseptic technique. Blood collected. Flushed with 10 mL NS. Patient maintains SpO2 saturation greater than 95% on room air. 17:11 CXR XRAY In Process Unspecified. EDMS 18:24 Provided Education on: DISCHARGE AND FOLLOWUP. Pulse ox on. NIBP on. Warm blanket db given. Pillow given. 18:24 Assist provider with laceration repair on chin Set up tray. Performed by Mckayla Asher MD Patient tolerated well. IV discontinued, intact, bleeding controlled, No redness/swelling at site. Administered Medications: 15:50 Drug: Ondansetron IVP 4 mg IVP once; over 2 minutes Route: IVP; Site: right antecubital;db 16:32 Follow up: Response: No adverse reaction db 15:50 Drug: NS 0.9% IV 1000 ml IV at 1 bolus Per protocol; to be given as a bolus over 60 db minutes Route: IV; Rate: 1 bolus; Site: right antecubital; 18:26 Follow up: Response: No adverse reaction; IV Status: Completed infusion; IV Intake: db 1000ml 15:50 Drug: Keppra IV 1000 mg IV at calculated rate once Route: IV; Rate: calculated rate; db Site: right antecubital; 18:26 Follow up: Response: No adverse reaction; IV Status: Completed infusion; IV Intake: db 100ml 16:24 Drug: Lidocaine Infiltration (1 %) 10 ml 20 ml Infiltration once; to bedside {Note: db GIVEN TO PROVIDER FOR ADMINISTRATION.} Volume: 20 ml; Route: Infiltration; 16:32 CANCELLED (Duplicate Order): tetanus-diphtheria toxoidadult 0.5 ml IM once; Provide db Vaccine Information Statement (VIS). 16:32 Drug: Boostrix Tdap IM 0.5 ml IM once; as a single dose Route: IM; Site: right deltoid; db 18:26 Follow up: Response: (VIS) Vaccine information sheet provided today. Questions and/or db concerns addressed. VIS edition date: Sep 27, 2020. 17:45 Drug: fentaNYL (PF) IVP 50 mcg IVP once Route: IVP; Site: right antecubital; db 18:26 Follow up: Response: Pain is decreased db Medication: 15:11 Vaccine Information Statement (VIS) provided today. Questions and/or concerns db addressed. VIS edition date: September 27, 2020. Intake: 18:26 IV: 1000ml; Total: 1000ml. db 18:26 IV: 100ml; Total: 1100ml. db Outcome: 17:39 Discharge ordered by MD. lopez 18:24 Discharged to home ambulatory, with family, db 18:24 Condition: stable 18:24 Discharge instructions given to patient, Instructed on discharge instructions, follow up and referral plans. Prescriptions given X 1, 18:25 Patient left the ED. db Signatures: Dispatcher [employer] EDMS Kinjal Gann Brian, RN RN Sue Hagen RN RN db Mckayla Asher MD MD sw6 Corrections: (The following items were deleted from the chart) 18:27 15:11 VIS not applicable for this client. bp db
[2024-06-15] MEDS ORDERED: FENTANYL CITR 100 MCG/2 ML ONE (17:47)
[2024-06-15 18:58] VITALS: TEMP 98
[2024-06-15 18:59] VITALS: O2SAT 100
[2024-06-15 19:02] VITALS: BP 151/97
== END 2024-06-15 18:25 | disposition home or self-care (01) ==
LOC: ER 15:00
DX: G40.89 Other seizures (principal); S01.81XA Laceration without foreign body of other part of head, initial encounter
CPT/HCPCS: 12013; 36415; 71045; 80053; 85025; 90715; 96365; 96366; 96372; 96375; 99285; J1953; J2003; J2405; J3010; J7030